=== PATIENT | male | born 1975 | race Native Hawaiian/Other Pacific Islander ===

== ENCOUNTER 2019-06-19 22:50 | Emergency (ER) | payer OTHER ==
[2019-06-19 22:57] VITALS: BP 157/90; PULSE 91; RESP 16; TEMP 98
[2019-06-19] MEDS ORDERED: TOPICAL SKIN ADHESIVE 1 EACH AMP TOPICAL ONE (23:42)
[2019-06-19] MEDS ORDERED: DIPH,PERTUS(ACELL)TETVAC-LF 0.5 ML VIAL IM ONE (23:42)
--- NOTE | 2019-06-19 23:43 | ED ---
Wound/Laceration HPI - General Chief Complaint: Wound/Laceration Stated Complaint: Hand Laceration, [facility] Time Seen by Provider: 06/19/19 23:26 Source: patient Mode of arrival: ambulatory Limitations: no limitations - History of Present Illness Initial Comments: 43-year-old male presenting today for chief complaint of right thumb laceration. Patient states that he was opening a box at work when he cut himself on the thumb. Patient states that the bleeding is now controlled. Patient unsure of last tetanus. Denies any limitations range of motion deficits in sensation or decrease in strength of the affected digit. Patient denies any other complaints or areas of injury. Remaining review of systems negative - Related Data Allergies Allergy/AdvReac Type Severity Reaction Status Date / Time No Known Allergies Allergy Verified 06/19/19 22:54 Review of Systems ROS Statement: Those systems with pertinent positive or pertinent negative responses have been documented in the HPI. ROS Other: All systems not noted in ROS Statement are negative. Past Medical History Past Medical History: No Reported History History of Any Multi-Drug Resistant Organisms: None Reported Past Surgical History: No Surgical Hx Reported Past Psychological History: No Psychological Hx Reported Smoking Status: Current every day smoker Past Alcohol Use History: None Reported Past Drug Use History: None Reported General Exam - General Exam Comments Initial Comments: General: The patient is awake and alert, in no distress, and does not appear acutely ill. Eye: Pupils are equal, round and reactive to light, extra-ocular movements are intact. No nystagmus. There is normal conjunctiva bilaterally. No signs of icterus. Cardiovascular: There is a regular rate and rhythm. No murmur, rub or gallop is appreciated. Respiratory: Lungs are clear to auscultation, respirations are non-labored, breath sounds are equal. No wheezes, stridor, rales, or rhonchi. Musculoskeletal: Upon inspection there is a superficial laceration linear clean with no evidence of foreign body or deeper injury of the dorsal aspect of the right thumb. Full range of motion MCP DIP PIP joints which are isolated and tested strength intact sensation intact proximal and distal to injury site. Capillary refill less than 3 seconds. +2 radial pulses bilaterally. Bleeding controlled Neurological: A&O x 3. CN II-XII intact, There are no obvious motor or sensory deficits. Coordination appears grossly intact. Speech is normal. Skin: Skin is warm and dry and no rashes or lesions are noted. Psychiatric: Cooperative, appropriate mood & affect, normal judgment. Limitations: no limitations Course Vital Signs 06/19/19 22:54 Temperature 98 F Pulse Rate 91 Respiratory 16 Rate Blood Pressure 157/90 O2 Sat by Pulse 99 Oximetry Medical Decision Making - Medical Decision Making 43-year-old male presenting for thumb laceration. Laceration cleansed wound edges approximated using exofin. Care for skin adhesive was discussed. Tetanus updated very superficial lacerationsuspicion for underlying deeper injury. Patient neurovascularly intact of signs of tendon injury patient's father primary care provider otherwise stable for discharge. As discussed with attending prior Dr. Nava was agreeable care clinic Disposition Clinical Impression: Laceration of right thumb Disposition: HOME SELF-CARE Condition: Good Instructions (If sedation given, give patient instructions): Laceration (ED), Skin Adhesive Care (ED) Additional Instructions: Please use medication as discussed. Please follow-up with family doctor in the next 2-3 days.. Please return to emergency room if the symptoms increase or worsen or for any other concerns. Is patient prescribed a controlled substance at d/c from ED?: No Referrals: None,Stated [Primary Care Provider] - 1-2 days [facility] [NON-STAFF] - 1-2 days Time of Disposition: 00:27
--- NOTE | 2019-06-21 05:21 | CDI ---
Dear Elvie Chamberlain PA-C: Please do addendum length of the thumb laceration repaired. Thank you, Eamon Handy, Regional Director Of Finance. If you have any questions, please contact Risk Manager at [phone]. MTDD
== END 2019-06-20 00:55 | disposition home or self-care (01) ==
LOC: EC 22:50
DX: S61.011A Laceration without foreign body of right thumb without damage to nail, initial encounter (principal); F17.200 Nicotine dependence, unspecified, uncomplicated; Z23 Encounter for immunization; W26.8XXA Contact with other sharp object(s), not elsewhere classified, initial encounter; Y93.89 Activity, other specified; Y92.69 Other specified industrial and construction area as the place of occurrence of the external cause; Y99.0 Civilian activity done for income or pay
CPT/HCPCS: 12001; 90471; 90715; 99282

== ENCOUNTER 2023-05-03 13:36 | Inpatient (IN) | payer OTHER ==
--- NOTE | 2023-05-03 14:01 | ED ---
General Adult HPI - General Source: patient, RN notes reviewed Mode of arrival: ambulatory Limitations: no limitations <Da Bernardo - Last Filed: 05/03/23 14:00> <Lc Novak - Last Filed: 05/03/23 17:18> - General Chief complaint: Shortness of Breath Stated complaint: LOWER SWELLING SOB Time Seen by Provider: 05/03/23 14:00 - History of Present Illness Initial comments: 47-year-old male presents emergency Department chief complaint of leg swelling, dyspnea, jaundice. Patient states that he was at [facility] admitted for acute jaundice. They felt this related to alcohol cirrhosis he st ates he is a very heavy drinker prior to this. He denies any chest pain but states that he is having increasing leg swelling (Da Bernardo) Dictation was produced using [employer] dictation software. please excuse any grammatical, word or spelling errors. Chief Complaint: 47-year-old male recently treated liver failure presents to the ER for dyspnea History of Present Illness: 47-year-old male he was recently admitted at [facility] for liver failure and jaundice. Patient started on multiple medications. Shortly after being discharged few days ago patient developed shortness of breath. Denies any cough. States shortness of breath is worse at night. No chest pain. No fever or constitutional symptoms. The ROS documented in this emergency department record has been reviewed and confirmed by me. Those systems with pertinent positive or negative responses have been documented in the HPI. All other systems are other negative and/or noncontributory. (Lc Novak) - Related Data Allergies Allergy/AdvReac Type Severity Reaction Status Date / Time No Known Allergies Allergy Verified 05/03/23 13:57 Review of Systems ROS Other: All systems not noted in ROS Statement are negative. <Da Bernardo - Last Filed: 05/03/23 14:00> ROS Other: All systems not noted in ROS Statement are negative. <Lc Novak - Last Filed: 05/03/23 17:18> ROS Statement: Those systems with pertinent positive or pertinent negative responses have been documented in the HPI. Past Medical History Past Medical History: Liver Disease History of Any Multi-Drug Resistant Organisms: None Reported Past Surgical History: Appendectomy Past Psychological History: No Psychological Hx Reported Smoking Status: Vaper Past Alcohol Use History: Abuse, Daily Past Drug Use History: None Reported, Marijuana <Da Bernardo - Last Filed: 05/03/23 14:00> General Exam Limitations: no limitations <Da Bernardo - Last Filed: 05/03/23 14:00> <Lc Novak - Last Filed: 05/03/23 17:18> - General Exam Comments Initial Comments: Visual Physical Exam Vital signs reviewed General: Well-appearing, nontoxic, no acute distress. Head: Normocephalic, atraumatic Eyes: PERRLA, EOMI ENT: Airway patent Chest: Nonlabored breathing Skin: No visual rash, normal skin tone Neuro: Alert and oriented 3 Musculoskeletal: No gross abnormalities (Da Bernardo) PHYSICAL EXAM: General Impression: Alert and oriented x3, not in acute distress HEENT: Normocephalic atraumatic, extra-ocular movements intact, pupils equal and reactive to light bilaterally, mucous membranes moist. Cardiovascular: Heart regular rate and rhythm Chest: Able to complete full sentences, no retractions, no tachypnea, mild crackles with auscultation to the lung bases posteriorly Abdomen: abdomen soft, non-tender, non-distended, no organomegaly Musculoskeletal: Pulses present and equal in all extremities, 2+ pitting edema bilateral extremity is Motor: no focal deficits noted Neurological: CN II-XII grossly intact, no focal motor or sensory deficits noted Skin: Intact with no visualized rashes Psych: Normal affect and mood (Lc Novak) Course Vital Signs 05/03/23 05/03/23 13:54 16:57 Temperature 98.1 F Pulse Rate 104 H 89 Respiratory 16 18 Rate Blood Pressure 130/87 132/93 O2 Sat by Pulse 97 Oximetry Medical Decision Making <Da Bernardo - Last Filed: 05/03/23 14:00> - Lab Data Result diagrams: 05/03/23 14:11 05/03/23 14:11 <Lc Novak - Last Filed: 05/03/23 17:18> - Medical Decision Making I performed a quick note portion of this chart signed Da Bernardo PA-C (Da Bernardo) Was pt. sent in by a medical professional or institution (TYLER Yung, WIRE WORKER, urgent care, hospital, or fpc...) When possible be specific @ -No Did you speak to anyone other than the patient for history (EMS, parent, family, police, friend...)? What history was obtained from this source @ -No Did you review nursing and triage notes (agree or disagree)? Why? @ -I reviewed and agree with nursing and triage notes Were old charts reviewed (outside hosp., previous admission, EMS record, old EKG, old radiological studies, urgent care reports/EKG's, fpc records)? Report findings @ -No old charts were reviewed Differential Diagnosis (chest pain, altered mental status, abdominal pain women, abdominal pain men, vaginal bleeding, musculoskeletal, weakness, fever, dyspnea, syncope, headache, dizziness, GI bleed, back pain, seizure, CVA, palpatations, mental health)? @ -Differential Dyspnea: Coronary syndrome, arrhythmia, tamponade, asthma, COPD, pulmonary embolism, pneumonia, pneumothorax, pulmonary effusion, anaphylaxis, diabetic ketoacidosis, flailed chest, pulmonary contusion, diaphragmatic rupture, anemia, neuromuscular, this is not meant to be an all-inclusive list. EKG interpreted by me (3pts min.). @ -None done X-rays interpreted by me (1pt min.). @ -Chest x-ray shows cardiomegaly and pulmonary vascular congestion CT interpreted by me (1pt min.). @ -None done U/S interpreted by me (1pt. min.). @ -None done What testing was considered but not performed or refused? (CT, X-rays, U/S, l abs)? Why? @ -None What meds were considered but not given or refused? Why? @ -None Did you discuss the management of the patient with other professionals (professionals i.e. TYLER Yung, WIRE WORKER, lab, RT, psych nurse, oncology social work, eligibility worker, teacher, boating safety officer, showcase maker)? Give summary @ -Discussed with hospitalist for admission Was smoking cessation discussed for >3mins.? @ -No Was critical care preformed (if so, how long)? @ -No Were there social determinants of health that impacted care today? How? (Dana elessness, low income, unemployed, alcoholism, drug addiction, transportation, low edu. Level, literacy, decrease access to med. care, [facility], rehab)? @ -No Was there de-escalation of care discussed even if they declined (Discuss DNR or withdrawal of care, Hospice)? DNR status @ -No What co-morbidities impacted this encounter? (DM, HTN, Smoking, COPD, CAD, Cancer, CVA, ARF, Chemo, Hep., AIDS, mental health diagnosis, sleep apnea, morbid obesity)? @ -None Was patient admitted / discharged? Hospital course, mention meds given and route, prescriptions, significant lab abnormalities, going to OR and other pertinent info. @ -47-year-old male presents with new-onset dyspnea after recent hospitalization for liver failure and jaundice. Vital signs upon arrival are within acceptable limits. Laboratory evaluation obtained. Patient has elevated BNP. Rest of vitals within acceptable limits. Chest x-ray shows heart failure. Patient has any cardiac history or history of heart failure. Patient be admitted for evaluation of new-onset heart failure. Evaluated 517pm stable at bedside. Patient given 1 dose of Lasix Undiagnosed new problem with uncertain prognosis? @ -No Drug Therapy requiring intensive monitoring for toxicity (Heparin, Nitro, Insulin, Cardizem)? @ -No Were any procedures done? @ -No Diagnosis/symptom? Acute, or Chronic, or Acute on Chronic? Uncomplicated (without systemic symptoms) or Complicated (systemic symptoms)? @ -New onset cardiac myopathy Side effects of treatment? @ -No Exacerbation, Progression, or Severe Exacerbation? @ -No Poses a threat to life or bodily function? How? (Chest pain, USA, IA, pneumonia, PE, COPD, DKA, ARF, appy, cholecystitis, CVA, Diverticulitis, Homicidal, Suicidal, threat to staff... and all critical care pts) @ -yes (Lc Novak) - Lab Data Lab Results 05/03/23 05/03/23 05/03/23 Range/Units 14:11 14:11 14:11 WBC 5.0 (3.8-10.6) k/uL RBC 3.16 L (4.30-5.90) m/uL Hgb 11.9 L (13.0-17.5) gm/dL Hct 35.9 L (39.0-53.0) % MCV 113.5 H (80.0-100.0) fL MCH 37.6 H (25.0-35.0) pg MCHC 33.2 (31.0-37.0) g/dL RDW 17.3 H (11.5-15.5) % Plt Count 254 (150-450) k/uL MPV 8.7 Neutrophils % 75 % Lymphocytes % 14 % Monocytes % 7 % Eosinophils % 1 % Basophils % 1 % Neutrophils # 3.7 (1.3-7.7) k/uL Lymphocytes # 0.7 L (1.0-4.8) k/uL Monocytes # 0.3 (0-1.0) k/uL Eosinophils # 0.1 (0-0.7) k/uL Basophils # 0.0 (0-0.2) k/uL Manual Slide Review Performed Hypochromasia Slight Anisocytosis Slight Macrocytosis Marked A Stomatocytes Present PT 10.9 (10.0-12.5) sec INR 1.0 (<1.2) APTT 27.4 (22.0-30.0) sec Sodium 137 (137-145) mmol/L Potassium 3.1 L (3.5-5.1) mmol/L Chloride 102 (98-107) mmol/L Carbon Dioxide 27 (22-30) mmol/L Anion Gap 8 mmol/L BUN 5 L (9-20) mg/dL Creatinine 0.53 L (0.66-1.25) mg/dL Est GFR (CKD-EPI)AfAm >90 (>60 ml/min/1.73 sqM) Est GFR (CKD-EPI)NonAf >90 (>60 ml/min/1.73 sqM) Glucose 121 H (74-99) mg/dL Plasma Lactic Acid Edy (0.7-2.0) mmol/L Calcium 8.0 L (8.4-10.2) mg/dL Magnesium 1.9 (1.6-2.3) mg/dL Total Bilirubin 9.1 H (0.2-1.3) mg/dL AST 131 H (17-59) U/L ALT 47 (4-49) U/L Alkaline Phosphatase 155 H (38-126) U/L NT-Pro-B Natriuret Pep 1420 pg/mL Total Protein 6.4 (6.3-8.2) g/dL Albumin 2.8 L (3.5-5.0) g/dL Amylase 60 (30-110) U/L Lipase 120 (23-300) U/L 05/03/23 Range/Units 14:11 WBC (3.8-10.6) k/uL RBC (4.30-5.90) m/uL Hgb (13.0-17.5) gm/dL Hct (39.0-53.0) % MCV (80.0-100.0) fL MCH (25.0-35.0) pg MCHC (31.0-37.0) g/dL RDW (11.5-15.5) % Plt Count (150-450) k/uL MPV Neutrophils % % Lymphocytes % % Monocytes % % Eosinophils % % Basophils % % Neutrophils # (1.3-7.7) k/uL Lymphocytes # (1.0-4.8) k/uL Monocytes # (0-1.0) k/uL Eosinophils # (0-0.7) k/uL Basophils # (0-0.2) k/uL Manual Slide Review Hypochromasia Anisocytosis Macrocytosis Stomatocytes PT (10.0-12.5) sec INR (<1.2) APTT (22.0-30.0) sec Sodium (137-145) mmol/L Potassium (3.5-5.1) mmol/L Chloride (98-107) mmol/L Carbon Dioxide (22-30) mmol/L Anion Gap mmol/L BUN (9-20) mg/dL Creatinine (0.66-1.25) mg/dL Est GFR (CKD-EPI)AfAm (>60 ml/min/1.73 sqM) Est GFR (CKD-EPI)NonAf (>60 ml/min/1.73 sqM) Glucose (74-99) mg/dL Plasma Lactic Acid Edy 1.7 (0.7-2.0) mmol/L Calcium (8.4-10.2) mg/dL Magnesium (1.6-2.3) mg/dL Total Bilirubin (0.2-1.3) mg/dL AST (17-59) U/L ALT (4-49) U/L Alkaline Phosphatase (38-126) U/L NT-Pro-B Natriuret Pep pg/mL Total Protein (6.3-8.2) g/dL Albumin (3.5-5.0) g/dL Amylase (30-110) U/L Lipase (23-300) U/L Disposition <Da Bernardo - Last Filed: 05/03/23 14:00> Decision Time: 17:18 <Lc Novak - Last Filed: 05/03/23 17:18> Clinical Impression: Heart failure Disposition: ADMITTED IP TO THIS HOSP Condition: Fair Referrals: None,Stated [Primary Care Provider] - 1-2 days
[2023-05-03 14:38] LABS: Anisocytosis Slight; Basophils % (A) 1 %; Eosinophils # (A) 0.1 k/uL (0-0.7); Eosinophils % (A) 1 %; HCT 35.9 % (39.0-53.0); HGB 11.9 gm/dL (13.0-17.5); Hypochromasia Slight; Lymphocytes # (A) 0.7 k/uL (1.0-4.8); Lymphocytes % (A) 14 %; MCH 37.6 pg (25.0-35.0); MCHC 33.2 g/dL (31.0-37.0); MCV 113.5 fL (80.0-100.0); Macrocytosis Marked; Mean Platelet Volume 8.7; Monocytes # (A) 0.3 k/uL (0-1.0); Monocytes % (A) 7 %; Neutrophils # (A) 3.7 k/uL (1.3-7.7); Neutrophils % (A) 75 %; Platelet Count 254 k/uL (150-450); RBC 3.16 m/uL (4.30-5.90); RDW 17.3 % (11.5-15.5)
[2023-05-03 14:42] LABS: ALT 47 U/L (4-49); AST 131 U/L (17-59); African American GFR (CKD) >90 (>60 ml/min/1.73 sqM); Albumin 2.8 g/dL (3.5-5.0); Alkaline Phosphatase 155 U/L (38-126); Amylase 60 U/L (30-110); Anion Gap 8 mmol/L; Blood Urea Nitrogen 5 mg/dL (9-20); Carbon Dioxide 27 mmol/L (22-30); Chloride 102 mmol/L (98-107); Glucose 121 mg/dL (74-99); Lipase 120 U/L (23-300); Magnesium 1.9 mg/dL (1.6-2.3); Non-African American GFR(CKD) >90 (>60 ml/min/1.73 sqM); Partial Thromboplastin Time 27.4 sec (22.0-30.0); Potassium 3.1 mmol/L (3.5-5.1); Prothrombin Time 10.9 sec (10.0-12.5); Sodium 137 mmol/L (137-145); Total Bilirubin 9.1 mg/dL (0.2-1.3); Total Protein 6.4 g/dL (6.3-8.2)
--- NOTE | 2023-05-03 14:44 | XR ---
EXAMINATION TYPE: XR chest 2V DATE OF EXAM: 05/03/2023 2:38 PM COMPARISON: None TECHNIQUE: XR chest 2V Frontal and lateral views of the chest. CLINICAL INDICATION:Male, 47 years old with history of sob; FINDINGS: Lungs/Pleura: Blunting of both costophrenic angles with left greater than right. No pneumothorax or f ocal consolidation. Pulmonary vascularity: Mild pulmonary vascular congestion. Heart/mediastinum: Cardiomediastinal silhouette is enlarged. Musculoskeletal: No acute osseous pathology. IMPRESSION: Cardiomegaly, pulmonary vascular congestion and small bilateral pleural effusions. Correlate with BNP for congestive heart failure.
[2023-05-03 14:50] LABS: NT-Pro-B-Type Natriuretic Pept 1420 pg/mL
[2023-05-03 15:28] LABS: Stomatocytes Present
[2023-05-03] MEDS ORDERED: FUROSEMIDE 10 MG/ML 4 ML VIAL IV STA (17:25)
--- NOTE | 2023-05-04 08:50 | P.HPIM ---
History of Present Illness this is a pleasant 47 years old male with no previous past medical history reviewed except he was recently diagnosed with alcoholic liver disease. he presents to [facility] on 04/19 with 2 weeks of jaundice and right lower back pain.he was diagnosed with alcoholic liver hepatitis with elevated LFTs, anemia and pancytopenia, hypertension, lactic acidosis and sepsis and possible Dr. colitis. And felt well and was discharged home. now he presents because of worsening bilateral leg swelling over the last 4-5 days. Also complaining of from a total shortness of breath and he thinks his abdomen getting little more distended patient reports chest pain on and off for the last 2-4 months, he says is mild that lasts only for a few seconds.felt like sharp per patient. He has dry cough occasional. He is not on home oxygen. He denies any urinary symptoms. He had diarrhea when he was at [facility] but currently his bowel movement is normal. No vomiting. No headache dizziness weakness or numbness. Patient states that he quit drinking when he was diagnosed with liver disease 2 weeks ago. He used to drink 3-4 tall can beers +3-4 extra liquor sometimesarea Used to smoke 1 pack per day and quit about 1.5 years ago. No current illicit drugs. ferritin was quite elevated at [facility] with 2092 , Repeat ferritin today vitals are stable, afebrile, on room air. CBC showed mild anemia of 11.9 potassium slightly low at 3.1.creatinine 0.5, rest of BMP is unremarkable. bilirubin is 9.1 (WAS 16 AND 23 at [facility]). AST is elevated at 13. ALT normal at 49. glucose mildly elevated 121 Troponin is negative. ProBNP 1420. Chest x-ray showed cardiomegaly with pulmonary vascular congestion and small bilateral pleural effusion Review of Systems Review of systems CONSTITUTIONAL: No fever, no malaise, no fatigue. HEENT: No recent visual problems or hearing problems. Denied any sore throat. CARDIOVASCULAR: No orthopnea, PND, no palpitations, no syncope. PULMONARY: No chest wall tenderness, no hemoptysis. GASTROINTESTINAL: No diarrhea, no nausea, no vomiting, no abdominal pain. Normoactive bowel sounds. NEUROLOGICAL: No headaches, no weakness, no numbness. HEMATOLOGICAL: Denies any bleeding or petechiae. GENITOURINARY: Denies any burning micturition, frequency, or urgency. MUSCULOSKELETAL/RHEUMATOLOGICAL: Denies any joint pain, swelling, or any muscle pain. ENDOCRINE: Denies any polyuria or polydipsia. Past Medical History Past Medical History: Liver Disease History of Any Multi-Drug Resistant Organisms: None Reported Past Surgical History: Appendectomy Past Anesthesia/Blood Transfusion Reactions: No Reported Reaction Additional Past Anesthesia/Blood Transfusion Reaction / Comment(s): high anxiety with General anesthesia Past Psychological History: No Psychological Hx Reported Smoking Status: Vaper Past Alcohol Use History: Abuse, Daily Past Drug Use History: None Reported, Marijuana - Past Family History Mother Additional Family Medical History / Comment(s): gallbladder removed Medications and Allergies Home Medications Medication Instructions Recorded Confirmed Type No Known Home Medications 05/03/23 05/03/23 History Allergies Allergy/AdvReac Type Severity Reaction Status Date / Time No Known Allergies Allergy Verified 05/03/23 17:55 Physical Exam Vitals: Vital Signs Temp Pulse Pulse Resp BP BP Pulse Ox 05/04/23 03:00 98.4 F 91 16 131/86 97 05/04/23 02:00 90 18 127/90 98 05/04/23 00:29 92 18 124/89 98 05/03/23 17:35 103 H 18 130/91 99 05/03/23 17:00 86 18 132/92 99 05/03/23 16:57 89 18 132/93 05/03/23 13:54 98.1 F 104 H 16 130/87 97 Intake and Output 05/03/23 05/03/23 05/04/23 14:59 22:59 06:59 Other: Voiding Method Toilet Weight 108.862 kg 111.4 kg GENERAL: The patient is alert and oriented x3, not in any acute distress. Well developed, well nourished. HEENT: Pupils are round and equally reacting to light. EOMI. No scleral icterus. No conjunctival pallor. Normocephalic, atraumatic. No pharyngeal erythema. No thyromegaly. CARDIOVASCULAR: S1 and S2 present. No murmurs, rubs, or gallops. PULMONARY: Chest is clear to auscultation, no wheezing , no crackles. ABDOMEN: Soft, nontender, nondistended, normoactive bowel sounds. No palpable organomegaly. MUSCULOSKELETAL: No joint swelling or deformity. EXTREMITIES: No cyanosis, clubbing, or pedal edema. NEUROLOGICAL: Gross neurological examination did not reveal any focal deficits. SKIN: No rashes. no petechiae. Results CBC & Chem 7: 05/03/23 14:11 05/03/23 14:11 Labs: Abnormal Lab Results - Last 24 Hours (Table) 05/03/23 05/03/23 Range/Units 14:11 14:11 RBC 3.16 L (4.30-5.90) m/uL Hgb 11.9 L (13.0-17.5) gm/dL Hct 35.9 L (39.0-53.0) % MCV 113.5 H (80.0-100.0) fL MCH 37.6 H (25.0-35.0) pg RDW 17.3 H (11.5-15.5) % Lymphocytes # 0.7 L (1.0-4.8) k/uL Macrocytosis Marked A Potassium 3.1 L (3.5-5.1) mmol/L BUN 5 L (9-20) mg/dL Creatinine 0.53 L (0.66-1.25) mg/dL Glucose 121 H (74-99) mg/dL Calcium 8.0 L (8.4-10.2) mg/dL Total Bilirubin 9.1 H (0.2-1.3) mg/dL AST 131 H (17-59) U/L Alkaline Phosphatase 155 H (38-126) U/L Albumin 2.8 L (3.5-5.0) g/dL Thrombosis Risk Factor Assmnt - Choose All That Apply Any of the Below Risk Factors Present?: Yes Each Factor Represents 1 point: Age 41-60 years, Heart failure (<1month), Swollen legs (current) Other Risk Factors: No Other congenital or acquired thrombophilia - If yes, enter type in comment: No Thrombosis Risk Factor Assessment Total Risk Factor Score: 3 Thrombosis Risk Factor Assessment Level: Moderate Risk Assessment and Plan Assessment: fluid overload most likely secondary to Liver disease and cirrhosis. Rule out cardiomyopathy. cardiomegaly Recent diagnosis of alcoholic cirrhosis Jaundice secondary to above recent history of alcohol use disorder, currently elevated ferritin. Rule out hemachromatosis Plan: Start diuretics lasix and Aldactone, with fluid restriction GI team consult to help in the diagnosis and management of hie liver disease Check echocardiogram cardiology consult Labs and medication were reviewed.. Continue same treatment. Continue with symptomatic treatment. Resume home medication. Monitor labs and vitals. DVT and GI prophylaxis. Further recommendations as per clinical course of the patient DVT prophylaxis: Subcutaneous heparin GI Prophylaxis: Pepcid Prognosis is guarded
[2023-05-04] MEDS ORDERED: FUROSEMIDE 10 MG/ML 4 ML VIAL IV SCH (09:00)
[2023-05-04] MEDS: FAMOTIDINE 20 MG/2 ML VIAL IV SCH ×2 (09:24→20:00)
[2023-05-04] MEDS: HEPARIN SODIUM,PORCINE 5,000 UNIT/ML 1 ML VIAL SQ SCH ×2 (09:24→20:00)
--- NOTE | 2023-05-04 11:16 | P.CRDCN ---
History of Present Illness History of present illness: HISTORY OF PRESENT ILLNESS: This is a 47-year-old male with a past medical history significant for daily alcohol use, nicotine dependence, and liver disease. 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 We have been asked to see the patient in consultation for congestive heart failure. Patient examined at the bedside. Patient states he was hospitalized at [facility] secondary to jaundice and liver disease. He states he was hospitalized for 10 days and was discharged home on Wednesday. He states he has not had any alcohol since been admitted to [facility]. He presented to [facility] yesterday with a chief complaint of shortness of breath and increased lower extremity edema.he states he was told he had a weak heart muscle over at [facility]. However the patient did not have an echocardiogram completed during that admission. * EKG reveals sinus mechanism with no signs of acute ischemia * Chest xray: reveals cardiomegaly, pulmonary vascular congestion and small bilateral pleural effusions * Current home cardiac medications include none REVIEW OF SYSTEMS: At the time of my exam: CONSTITUTIONAL: Denies fever or chills. HEENT: Denies blurred vision, vision changes, or eye pain. Denies hemoptysis CARDIOVASCULAR: Denies chest pain. Denies orthopnea. Denies PND. Denies pa lpitations RESPIRATORY: Denies shortness of breath. GASTROINTESTINAL: Denies abdominal pain. Denies nausea or vomiting. HEMATOLOGIC: Denies bleeding disorders. GENITOURINARY: Denies any blood in urine. SKIN: Denies pruitis. Denies rash. PHYSICAL EXAM: VITAL SIGNS: Reviewed. GENERAL: Well-developed in no acute distress. jaundice. HEENT: Head is normocephalic. Pupils are equal, round. Sclerae anicteric. Mucous membranes of the mouth are moist. Neck supple. No JVD or thyromegaly LUNGS: Respirations even and unlabored. Lungs essentially clear to auscultation bilaterally. HEART: Regular rate and rhythm. S1 and S2 heard. ABDOMEN: Soft. Nondistended. Nontender. EXTREMITIES: Normal range of motion. No clubbing or cyanosis. Peripheral pulses intact. 2+ bilateral lower extremity edema NEUROLOGIC: Awake and alert. Oriented x 3. ASSESSMENT: Shortness of breath Lower extremity edema, likely secondary to hypoalbuminemia and liver disease Hypokalemia Elevated bilirubin, 9.1 History of liver cirrhosis History of alcohol abuse Nicotine dependence, patient currently vapes PLAN: Obtain 2-D echo to assess cardiac structure and function Discontinue IV Lasix. Begin oral Lasix Continue Aldactone Abstinence from alcohol recommended Further recommendations pending patient's course Nurse practitioner note has been reviewed by physician. Signing provider agrees with the documented findings, assessment, and plan of care. Past Medical History Past Medical History: Liver Disease History of Any Multi-Drug Resistant Organisms: None Reported Past Surgical History: Appendectomy Past Anesthesia/Blood Transfusion Reactions: No Reported Reaction Additional Past Anesthesia/Blood Transfusion Reaction / Comment(s): high anxiety with General anesthesia Past Psychological History: No Psychological Hx Reported Smoking Status: Vaper Past Alcohol Use History: Abuse, Daily Past Drug Use History: None Reported, Marijuana - Past Family History Mother Additional Family Medical History / Comment(s): gallbladder removed Medications and Allergies Home Medications Medication Instructions Recorded Confirmed Type No Known Home Medications 05/03/23 05/03/23 History Allergies Allergy/AdvReac Type Severity Reaction Status Date / Time No Known Allergies Allergy Verified 05/03/23 17:55 Physical Exam Vitals: Vital Signs Temp Pulse Pulse Resp BP BP Pulse Ox 05/04/23 03:00 98.4 F 91 16 131/86 97 05/04/23 02:00 90 18 127/90 98 05/04/23 00:29 92 18 124/89 98 05/03/23 17:35 103 H 18 130/91 99 05/03/23 17:00 86 18 132/92 99 05/03/23 16:57 89 18 132/93 05/03/23 13:54 98.1 F 104 H 16 130/87 97 Intake and Output 05/03/23 05/04/23 05/04/23 22:59 06:59 14:59 Other: Voiding Method Toilet Weight 111.4 kg Results 05/03/23 14:11 05/03/23 14:11 Cardiac Enzymes 05/03/23 05/03/23 Range/Units 14:11 14:11 AST 131 H (17-59) U/L Troponin I <0.012 (0.000-0.034) ng/mL Coagulation 05/03/23 Range/Units 14:11 PT 10.9 (10.0-12.5) sec APTT 27.4 (22.0-30.0) sec CBC 05/03/23 Range/Units 14:11 WBC 5.0 (3.8-10.6) k/uL RBC 3.16 L (4.30-5.90) m/uL Hgb 11.9 L (13.0-17.5) gm/dL Hct 35.9 L (39.0-53.0) % Plt Count 254 (150-450) k/uL Comprehensive Metabolic Panel 05/03/23 Range/Units 14:11 Sodium 137 (137-145) mmol/L Potassium 3.1 L (3.5-5.1) mmol/L Chloride 102 (98-107) mmol/L Carbon Dioxide 27 (22-30) mmol/L BUN 5 L (9-20) mg/dL Creatinine 0.53 L (0.66-1.25) mg/dL Glucose 121 H (74-99) mg/dL Calcium 8.0 L (8.4-10.2) mg/dL AST 131 H (17-59) U/L ALT 47 (4-49) U/L Alkaline Phosphatase 155 H (38-126) U/L Total Protein 6.4 (6.3-8.2) g/dL Albumin 2.8 L (3.5-5.0) g/dL Intake and Output 05/03/23 05/04/23 05/04/23 22:59 06:59 14:59 Other: Voiding Method Toilet Weight 111.4 kg 05/03/23 14:11 05/03/23 14:11
[2023-05-04] MEDS: SPIRONOLACTONE 25 MG TAB PO SCH (11:48)
--- NOTE | 2023-05-04 13:18 | CA ---
Transthoracic Echo Report Name: Keo Blankenship Age: 47 Gender: M : 1975 Exam Date: 05/04/2023 11:19 Exam Location: [facility] Ht (in): 74 Wt (lb): 245 Ordering Physician: Lee Ann Aldrich Attending/Referring Phys: [id number], Elinor Range Aide Dario Guzman Procedure CPT: Indications: LV function, SOB Cardiac Hx: Technical Quality: Fair Contrast 1: Total Dose (mL): Contrast 2: Total Dose (mL): MEASUREMENTS (Male / Female) Normal Values 2D ECHO LV Diastolic Diameter PLAX 5.5 cm 4.2 - 5.9 / 3.9 - 5.3 cm LV Systolic Diameter PLAX 4.0 cm IVS Diastolic Thickness 1.1 cm 0.6 - 1.0 / 0.6 - 0.9 cm LVPW Diastolic Thickness 0.9 cm 0.6 - 1.0 / 0.6 - 0.9 cm LV Relative Wall Thickness 0.4 RV Internal Dim ED PLAX 2.4 cm LVOT Diameter 2.2 cm Aortic Root Diameter 3.4 cm LA Systolic Diameter LX 2.9 cm 3.0 - 4.0 / 2.7 - 3.8 cm LV Diastolic Volume MOD BP 124.3 cm??? 67 - 155 / 56 - 104 cm??? LV Systolic Volume MOD BP 64.5 cm??? 22 - 58 / 19 - 49 cm??? LV Ejection Fraction MOD BP 48.1 % >= 55 % LV Cardiac Index MOD BP 1961.6 cm???/min???m??? LV Diastolic Volume MOD 4C 156.6 cm??? LV Systolic Volume MOD 4C 73.1 cm??? LV Ejection Fraction MOD 4C 53.3 % LV Cardiac Index MOD 4C 2742.1 cm???/min???m??? LV Diastolic Length 4C 9.3 cm LV Systolic Length 4C 7.8 cm LV Diastolic Volume MOD 2C 98.8 cm??? LV Systolic Volume MOD 2C 53.6 cm??? LV Ejection Fraction MOD 2C 45.7 % LV Cardiac Index MOD 2C 1483.8 cm???/min???m??? LV Diastolic Length 2C 9.1 cm LV Systolic Length 2C 7.5 cm LA Volume 38.3 cm??? 18 - 58 / 22 - 52 cm??? LA Volume Index 15.7 cm???/m??? 16 - 28 cm???/m??? DOPPLER AV Peak Velocity 126.7 cm/s AV Peak Gradient 6.4 mmHg LVOT Peak Velocity 132.2 cm/s LVOT Peak Gradient 7.0 mmHg LVOT Velocity Time Integral 24.4 cm LVOT Stroke Volume 92.3 cm??? LVOT Stroke Volume Index 39.0 ml/m??? LVOT Cardiac Index 3031.8 cm???/min???m??? AV Area Cont Eq pk 3.9 cm??? MV Peak Velocity 89.6 cm/s MV Peak Gradient 3.2 mmHg MV Mean Velocity 52.2 cm/s MV Mean Gradient 1.3 mmHg MV Velocity Time Integral 29.3 cm Mitral E Point Velocity 82.6 cm/s Mitral A Point Velocity 75.2 cm/s Mitral E to A Ratio 1.1 MV Deceleration Time 200.9 ms MV E' Velocity 8.2 cm/s Mitral E to MV E' Ratio 10.1 TR Peak Velocity 137.0 cm/s TR Peak Gradient 7.5 mmHg Right Ventricular Systolic Press 12.5 mmHg PV Peak Velocity 117.3 cm/s PV Peak Gradient 5.5 mmHg FINDINGS Left Ventricle Normal LV size and wall thickness. Left ventricular ejection fraction is estimated at 40-45 %. Global hypokinesis with no segmental wall motion abnormalities Right Ventricle Normal right ventricular size. Right Atrium Normal right atrial size. Left Atrium Normal left atrial size. Mitral Valve Structurally normal mitral valve. No mitral regurgitation. No mitral stenosis. Aortic Valve Trileaflet aortic valve. No aortic valve stenosis or regurgitation. Tricuspid Valve Structurally normal tricuspid valve. Trace TR. Pulmonic Valve Pulmonic valve not well visualized. No pulmonic regurgitation. Pericardium Not well visualized. Aorta Normal size aortic root. CONCLUSIONS Moderate impairment in the left ventricular systolic function with global hypokinesis Previewed by: Dr. Erin Gaston MD (Electronically Signed) Final Date: 04 May 2023 13:17
--- NOTE | 2023-05-04 14:31 | P.CONS ---
History of Present Illness - Reason for Consult Consult date: 05/04/23 Liver cirrhosis, high ferritin Requesting physician: Shahzad Koroma - Chief Complaint Shortness of breath, lower extremity swelling - History of Present Illness This a 47-year-old male who presented to the emergency department yesterday with complaints of shortness of breath and lower extremity swelling. Patient was recently hospitalized for 12-13 days at [facility] and diagnosed with acute alcoholic hepatitis. He admits to drinking heavily for 2 years duration 3-4 tall beers daily along with 3-4 small liquor bottles. He was seen by gastroenterology at [facility], at that time patient did not have any swelling in his lower extremities. He had acute alcoholic hepatitis with significantly elevated bilirubin. Apparently during that stay he also had elevated ferritin. Gastroenterology has been consulted for cirrhosis with elevated ferritin. Patient currently denies any abdominal pain, no nausea, vomiting, hematemesis or blood in his stool. He states that he has noticed over the last couple days increased swelling in his lower extremities and some shortness of breath. Chest x-ray showed cardiomegaly, pulmonary vascular congestion and small bilateral pleural effusions. Correlate with BMP for congestive heart failure. Patient denies any shortness of breath at this time, no chest pain. Cardiology on consult. Admitting labs WBC 5.0 hemoglobin 11.9 hematocrit 35.7 platelet count 254,000 INR 1.0 sodium 137 potassium 3.1 BUN 5 creatinine 0.53 total bilirubin 9.1 AST 131 and 247 alkaline phosphatase 55, amylase 60 lipase 120 Review of Systems REVIEW OF SYSTEMS: CARDIOPULMONARY: No chest pain, patient reported shortness of breath on admission. Lower extremity swelling which is new. Gastrointestinal: No abdominal pain. No nausea or vomiting. No hematemesis, coffee-ground emesis. No rectal bleeding, or melena. GENITOURINARY: No dysuria or hematuria. MUSCULOSKELETAL: Reports normal range of motion. SKIN: No rashes. No jaundice. ENDOCRINE: No chills, fevers. No excessive weight gain or loss. No polydipsia or polyuria. PSYCHIATRIC: Unremarkable. NEUROLOGY: No change in mental status. Denies dizziness, headache. ENT: Vision unremarkable. CONSTITUTIONAL: No recent weight loss. No fever, chills, night sweats. Past Medical History Past Medical History: Liver Disease History of Any Multi-Drug Resistant Organisms: None Reported Past Surgical History: Appendectomy Past Anesthesia/Blood Transfusion Reactions: No Reported Reaction Additional Past Anesthesia/Blood Transfusion Reaction / Comm: high anxiety with General anesthesia Past Psychological History: No Psychological Hx Reported Smoking Status: Vaper Past Alcohol Use History: Abuse, Daily Past Drug Use History: None Reported, Marijuana - Past Family History Mother Additional Family Medical History / Comment(s): gallbladder removed Medications and Allergies Home Medications Medication Instructions Recorded Confirmed Type No Known Home Medications 05/03/23 05/03/23 History Allergies Allergy/AdvReac Type Severity Reaction Status Date / Time No Known Allergies Allergy Verified 05/03/23 17:55 Physical Exam Vitals: Vital Signs Temp Pulse Pulse Resp BP BP Pulse Ox 05/04/23 09:26 98.1 F 74 18 112/64 97 05/04/23 03:00 98.4 F 91 16 131/86 97 05/04/23 02:00 90 18 127/90 98 05/04/23 00:29 92 18 124/89 98 05/03/23 17:35 103 H 18 130/91 99 05/03/23 17:00 86 18 132/92 99 05/03/23 16:57 89 18 132/93 05/03/23 13:54 98.1 F 104 H 16 130/87 97 Intake and Output 05/03/23 05/04/23 05/04/23 22:59 06:59 14:59 Intake Total 118 Balance 118 Intake: Oral 118 Other: Voiding Method Toilet Weight 111.4 kg General appearance: The patient is alert, oriented, appears in no acute distress. HET: Head is normocephalic and atraumatic. Conjunctiva pink. Sclera icteric. Neck: Supple without lymphadenopathy. Trachea midline. Heart: Regular. Lungs: Equal expansion, normal respiratory effort. Abdomen: Soft, nontender, nondistended. No guarding or rigidity. Skin: No rashes. Jaundice. Extremities: Normal skin color and turgor. Bilateral lower extremity pitting edema. Neurological: No focal deficits. Alert and oriented x3. Results CBC & Chem 7: 05/03/23 14:11 05/03/23 14:11 Labs: Abnormal Lab Results - Last 24 Hours (Table) 05/03/23 05/03/23 Range/Units 14:11 14:11 RBC 3.16 L (4.30-5.90) m/uL Hgb 11.9 L (13.0-17.5) gm/dL Hct 35.9 L (39.0-53.0) % MCV 113.5 H (80.0-100.0) fL MCH 37.6 H (25.0-35.0) pg RDW 17.3 H (11.5-15.5) % Lymphocytes # 0.7 L (1.0-4.8) k/uL Macrocytosis Marked A Potassium 3.1 L (3.5-5.1) mmol/L BUN 5 L (9-20) mg/dL Creatinine 0.53 L (0.66-1.25) mg/dL Glucose 121 H (74-99) mg/dL Calcium 8.0 L (8.4-10.2) mg/dL Total Bilirubin 9.1 H (0.2-1.3) mg/dL AST 131 H (17-59) U/L Alkaline Phosphatase 155 H (38-126) U/L Albumin 2.8 L (3.5-5.0) g/dL Chest x-ray: report reviewed (Chest x-ray showed cardiomegaly, pulmonary vascular congestion and small bilateral pleural effusions. Correlate with BMP for congestive heart failure. ) Assessment and Plan (1) Acute alcoholic hepatitis Narrative/Plan: 47-year-old male recently hospitalized for nearly 2 weeks [facility] for newly diagnosed acute alcoholic hepatitis. Patient has history of heavy alcohol use. Last 2 years duration. States he has not had any alcohol since he was diagnosed with liver disease. During that time he was seen by gastroenterology who recommended outpatient follow-up. Patient was only home for a few days and stated he started noticing lower extremity swelling as well as some shortness of breath. At time of discharge he had no lower extremity swelling or ascites. He was not discharged on any diuretics. Patient also apparently had elevated ferritin during his hospitalization which is an acute phase reactant to acute alcoholic hepatitis. There is no further workup indicated as this is commonly seen in acute hepatitis. Agree with Lasix 40 mg daily as well as Aldactone 50 mg daily. Continue alcohol abstinence. Low- sodium diet. Current Visit: Yes Status: Acute Code(s): K70.10 - ALCOHOLIC HEPATITIS WITHOUT ASCITES SNOMED Code(s): 2611307 (2) Lower extremity edema Narrative/Plan: Lower extremity edema more likely related to derangement in the extracellular fluid volume related to underlying liver disease Current Visit: Yes Status: Acute Code(s): R60.0 - LOCALIZED EDEMA SNOMED Code(s): 912119532 Plan: 1. Continue symptomatic and supportive care 2. Low-sodium diet 3. Agree with Lasix 40 mg daily and Aldactone 50 mg daily 4. Continue with alcohol abstinence 5. No further workup indicated for elevated ferritin as this is reactive to acute phase of hepatitis 6. Continue with recommendations and workup from cardiology 7. Replace potassium per protocol 8. Daily CBC, CMP Thank you for this consultation, we will continue to follow. Dr. Mahendra Balderas I agree with the dictator's note, documented as a scribe by Ally Soto.
[2023-05-04 17:22] VITALS: BMI 31.5
[2023-05-05 07:23] LABS: ALT 42 U/L (4-49); AST 117 U/L (17-59); African American GFR (CKD) >90 (>60 ml/min/1.73 sqM); Albumin 2.5 g/dL (3.5-5.0); Alkaline Phosphatase 157 U/L (38-126); Anion Gap 7 mmol/L; Blood Urea Nitrogen 9 mg/dL (9-20); Calcium 7.9 mg/dL (8.4-10.2); Carbon Dioxide 27 mmol/L (22-30); Chloride 106 mmol/L (98-107); Glucose 98 mg/dL (74-99); Non-African American GFR(CKD) >90 (>60 ml/min/1.73 sqM); Potassium 3.2 mmol/L (3.5-5.1); Sodium 140 mmol/L (137-145); Total Bilirubin 6.2 mg/dL (0.2-1.3); Total Protein 5.9 g/dL (6.3-8.2)
[2023-05-05] MEDS ORDERED: FUROSEMIDE 40 MG TAB PO SCH (09:00)
[2023-05-05] MEDS: SPIRONOLACTONE 25 MG TAB PO SCH (09:43)
[2023-05-05] MEDS ORDERED: carvediloL 3.125 MG TAB PO SCH (09:45)
[2023-05-05] MEDS: FAMOTIDINE 20 MG/2 ML VIAL IV SCH (09:47)
[2023-05-05] MEDS: HEPARIN SODIUM,PORCINE 5,000 UNIT/ML 1 ML VIAL SQ SCH (09:47)
[2023-05-05 10:11] VITALS: RESP 16; TEMP 98
--- NOTE | 2023-05-05 11:48 | P.PN ---
Subjective HISTORY OF PRESENT ILLNESS: This is a 47-year-old male with a past medical history significant for daily alcohol use, nicotine dependence, and liver disease. 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 We have been asked to see the patient in consultation for congestive heart failure. Patient examined at the bedside. Patient states he was hospitalized at [facility] [place] secondary to jaundice and liver disease. He states he was hospitalized for 10 days and was discharged home on Wednesday. He states he has not had any alcohol since been admitted to [facility] [place]. He presented to [facility] yesterday with a chief complaint of shortness of breath and increased lower extremity edema.he states he was told he had a weak heart muscle over at [facility] [place]. However the patient did not have an echocardiogram completed during that admission. * EKG reveals sinus mechanism with no signs of acute ischemia * Chest xray: reveals cardiomegaly, pulmonary vascular congestion and small bi lateral pleural effusions * Current home cardiac medications include none 05/05/2023 Patient examined this morning at the bedside. Patient denies chest pain or pressure. He denies shortness of breath. Echocardiogram completed revealing ejection fraction 40-45%. PHYSICAL EXAM: VITAL SIGNS: Reviewed. GENERAL: Well-developed in no acute distress. jaundice. HEENT: Head is normocephalic. Pupils are equal, round. Sclerae anicteric. Mucous membranes of the mouth are moist. Neck supple. No JVD or thyromegaly LUNGS: Respirations even and unlabored. Lungs essentially clear to auscultation bilaterally. HEART: Regular rate and rhythm. S1 and S2 heard. ABDOMEN: Soft. Nondistended. Nontender. EXTREMITIES: Normal range of motion. No clubbing or cyanosis. Peripheral pulses intact. 2+ bilateral lower extremity edema NEUROLOGIC: Awake and alert. Oriented x 3. ASSESSMENT: Shortness of breath Lower extremity edema, likely secondary to hypoalbuminemia and liver disease Hypokalemia Elevated bilirubin, 9.1 History of liver cirrhosis History of alcohol abuse Nicotine dependence, patient currently vapes PLAN: Continue current cardiac medications Add carvedilol and losartan Abstinence from alcohol recommended Patient is stable for discharge home today from a cardiac standpoint We will sign off. Please reconsult if needed. Nurse practitioner note has been reviewed by physician. Signing provider agrees with the documented findings, assessment, and plan of care. Objective - Vital Signs Vital signs: Vital Signs Temp 98.0 F 05/05/23 09:14 Pulse 70 05/05/23 09:14 Resp 16 05/05/23 09:14 BP 123/84 05/05/23 09:14 Pulse Ox 97 05/05/23 09:14 FiO2 Intake & Output 05/04/23 05/05/23 05/05/23 18:59 06:59 18:59 Intake Total 900 560 128 Output Total 1425 300 Balance -525 260 128 Weight 111.4 kg 108.9 kg Intake: IV 20 20 10 Invasive Line 1 20 20 10 Oral 880 540 118 Output: Urine 1425 300 Other: Voiding Method Toilet Toilet Toilet - Labs CBC & Chem 7: 05/03/23 14:11 05/05/23 06:40 Labs: Abnormal Lab Results - Last 24 Hours (Table) 05/04/23 05/05/23 Range/Units 09:29 06:40 Potassium 3.2 L (3.5-5.1) mmol/L Creatinine 0.55 L (0.66-1.25) mg/dL Calcium 7.9 L (8.4-10.2) mg/dL Ferritin 944.0 H (22.0-322.0) ng/mL Total Bilirubin 6.2 H (0.2-1.3) mg/dL AST 117 H (17-59) U/L Alkaline Phosphatase 157 H (38-126) U/L Total Protein 5.9 L (6.3-8.2) g/dL Albumin 2.5 L (3.5-5.0) g/dL
[2023-05-05 12:59] VITALS: BP 115/74; PULSE 79
[2023-05-05] MEDS ORDERED: Potassium Replacement Protocol 1 EACH MISC MISCELLANE PRN (13:00)
[2023-05-05] MEDS: POTASSIUM CHLORIDE ER 20 MEQ TAB.ER PO SCH ×3 (13:18→14:21)
--- NOTE | 2023-05-05 13:48 | P.PN ---
Subjective Progress Note Date: 05/05/23 Principal diagnosis: Cirrhosis of the liver This a 47-year-old male who presented to the emergency department yesterday with complaints of shortness of breath and lower extremity swelling. Patient was recently hospitalized for 12-13 days at [facility] and diagnosed with acute alcoholic hepatitis. He admits to drinking heavily for 2 years duration 3-4 tall beers daily along with 3-4 small liquor bottles. He was seen by gastroenterology at [facility], at that time patient did not have any swelling in his lower extremities. He had acute alcoholic hepatitis with significantly elevated bilirubin. Apparently during that stay he also had elevated ferritin. Gastroenterology has been consulted for cirrhosis with elevated ferritin. Patient currently denies any abdominal pain, no nausea, vomiting, hematemesis or blood in his stool. He states that he has noticed over the last couple days increased swelling in his lower extremities and some shor tness of breath. Chest x-ray showed cardiomegaly, pulmonary vascular congestion and small bilateral pleural effusions. Correlate with BMP for congestive heart failure. Patient denies any shortness of breath at this time, no chest pain. Cardiology on consult. Admitting labs WBC 5.0 hemoglobin 11.9 hematocrit 35.7 platelet count 254,000 INR 1.0 sodium 137 potassium 3.1 BUN 5 creatinine 0.53 total bilirubin 9.1 AST 131 and 247 alkaline phosphatase 55, amylase 60 lipase 120 05/05/2023 Patient seen and examined today without any acute changes. Denies any abdominal pain, nausea or vomiting. States he feels like swelling in lower extremities improved. No shortness of breath or chest pain. Total bilirubin 6.2 AST 117 ALT 42 alkaline phosphatase 67 ferritin was noted at 944 Objective - Vital Signs Vital signs: Vital Signs Temp 98.1 F 05/04/23 23:37 Pulse 79 05/05/23 04:00 Resp 17 05/05/23 04:00 BP 124/73 05/05/23 04:00 Pulse Ox 98 05/05/23 04:00 FiO2 Intake & Output 05/04/23 05/05/23 05/05/23 18:59 06:59 18:59 Intake Total 900 560 118 Output Total 1425 300 Balance -525 260 118 Weight 111.4 kg 108.9 kg Intake: IV 20 20 Invasive Line 1 20 20 Oral 880 540 118 Output: Urine 1425 300 Other: Voiding Method Toilet Toilet - Exam General appearance: The patient is alert, oriented, appears in no acute distress. HET: Head is normocephalic and atraumatic. Conjunctiva pink. Sclera icteric. Neck: Supple without lymphadenopathy. Abdomen: Soft, nontender, nondistended with bowel sounds. No guarding or rigidity. Extremities: Normal skin color and turgor. Bilateral lower extremity edema. Skin: No rashes, jaundice. Neurological: No focal deficits. Alert and oriented. - Labs CBC & Chem 7: 05/03/23 14:11 05/05/23 06:40 Labs: Abnormal Lab Results - Last 24 Hours (Table) 05/04/23 05/05/23 Range/Units 09:29 06:40 Potassium 3.2 L (3.5-5.1) mmol/L Creatinine 0.55 L (0.66-1.25) mg/dL Calcium 7.9 L (8.4-10.2) mg/dL Ferritin 944.0 H (22.0-322.0) ng/mL Total Bilirubin 6.2 H (0.2-1.3) mg/dL AST 117 H (17-59) U/L Alkaline Phosphatase 157 H (38-126) U/L Total Protein 5.9 L (6.3-8.2) g/dL Albumin 2.5 L (3.5-5.0) g/dL Assessment and Plan (1) Acute alcoholic hepatitis Narrative/Plan: 47-year-old male recently hospitalized for nearly 2 weeks [facility] for newly diagnosed acute alcoholic hepatitis. Patient has history of heavy alcohol use. Last 2 years duration. States he has not had any alcohol since he was diagnosed with liver disease. During that time he was seen by gastroenterology who recommended outpatient follow-up. Patient was only home for a few days and stated he started noticing lower extremity swelling as well as some shortness of breath. At time of discharge he had no lower extremity swelling or ascites. He was not discharged on any diuretics. Patient also apparently had elevated ferritin during his hospitalization which is an acute phase reactant to acute alcoholic hepatitis. There is no further workup indicated as this is commonly seen in acute hepatitis. Agree with Lasix 40 mg daily as well as Aldactone 50 mg daily. Continue alcohol abstinence. Low-s odium diet. Current Visit: Yes Status: Acute Code(s): K70.10 - ALCOHOLIC HEPATITIS WITHOUT ASCITES SNOMED Code(s): 8185678 (2) Lower extremity edema Narrative/Plan: Lower extremity edema more likely related to derangement in the extracellular fluid volume related to underlying liver disease Current Visit: Yes Status: Acute Code(s): R60.0 - LOCALIZED EDEMA SNOMED Code(s): 001297638 Plan: 1. Continue symptomatic and supportive care 2. Low-sodium diet 3. Agree with Lasix 40 mg daily and Aldactone 50 mg daily 4. Continue with alcohol abstinence 5. No further workup indicated for elevated ferritin as this is reactive to acute phase of hepatitis 6. Continue with recommendations and workup from cardiology 7. Replace potassium per protocol Thank you for this consultation, patient is cleared from gastroenterology for discharge. Follow-up in [address] Mahendra Balderas I agree with the dictator's note, documented as a scribe by Ally Soto.
[2023-05-05] MEDS ORDERED: LOSARTAN 25 MG TAB PO SCH (21:00)
--- NOTE | 2023-05-06 12:09 | CDI ---
Documentation Clarification Form Date: 05/06/23 From: Elissa Joseph Admit Date: 05/03/2023 05:10:00 PM Patient Name: Keo Blankenship Visit Number: [id number] Discharge Date: 05/05/2023 03:24:00 PM ATTENTION: The Clinical Documentation Specialists (CDI) and [facility] Coding Staff appreciate your assistance in clarifying documentation. Please respond to the clarification below the line at the bottom and electronically sign. The CDI & [facility] Coding staff will review the response and follow-up if needed. Please note: Queries are made part of the Legal Health Record. If you have any questions, please contact the author of this message via ITS. Dr. Pike E Ga, Your patient has the documented diagnosis of unspecified heart failure in the ED Note and progress notes. Additional information regarding the type and acuity of CHF is requested. History/Risk Factors: Alcoholic liver disease Clinical Indicators: He presents because of worsening bilateralleg swellingover the last 4-5 days. Also complaining of from a totalshortness of breathand he thinks his abdomen getting little moredistended patient reportschest painon and off for the last 2-4 months, he says is mild that lasts only for a few seconds.felt like sharp per patient.He has drycough occasional. VS/Pulse OX: T 98.1, P 104, R 16, BP 130/87, o2 SAT 97 BNP: 1420 05/04 Echocardiogram Results: Normal LV size and wall thickness. Left ventricular ejection fraction is estimated at 40-45 %. Global hypokinesiswith nosegmental wall motion abnormalities. 05/03 Chest X Ray: Cardiomegaly, pulmonary vascularcongestionand smallbilateral pleural effusions. Correlate with BNP forcongestive heart failure. Treatment: IV LASIX 40 MG Q 12 HR In your professional opinion, can you please clarify the [acuity and type] of CHF if known? [ ] Acute Systolic Heart Failure (reduced EF) [ ] Chronic Systolic Heart Failure (reduced EF) [ ] Acute on Chronic Systolic Heart Failure (reduced EF) [ ] Acute Diastolic Heart Failure (preserved EF) [ ] Chronic Diastolic Heart Failure (preserved EF) [ ] Acute on Chronic Diastolic Heart Failure (preserved EF) [ ] Acute Systolic & Diastolic Heart Failure [ ] Chronic Systolic & Diastolic Heart Failure [ ] Acute on Chronic Heart Failure Systolic & Diastolic Heart Failure [ ] Other, please specify [ ] Unable to determine Chronic Systolic Heart Failure (reduced EF) MTDD
--- NOTE | 2023-05-09 06:20 | P.DS ---
Providers Date of admission: 05/03/23 17:10 Expected date of discharge: 05/05/23 Attending physician: Adelfo Almonte Consults: 05/03/23 17:09 Consult Physician Routine Consulting Provider: Ronel Joaquin Consult Reason/Comments: chf Do you want consulting provider notified?: Yes 05/04/23 08:48 Consult Physician Routine Consulting Provider: Gilda Balderas Consult Reason/Comments: Liver cirrhosis, high ferritin, alcoholic Do you want consulting provider notified?: Yes Primary care physician: Stated None Hospital Course: Final diagnosis fluid overload most likely secondary to Liver disease and cirrhosis. cardiomyopathy with an EF of 40-45%. Possible acute systolic heart failure with reduced EF Recent diagnosis of alcoholic cirrhosis Jaundice secondary to above recent history of alcohol use disorder, currently Obesity with BMI 30.8 GI prophylaxis DVT prophylaxis Full code Discharge disposition Patient is being discharged in a stable condition with guarded prognosis to home . Patient will follow-up with Dr. Gandara in the outpatient setting upon discharge. Patient is to continue with current medications and close outpatient follow-up with GI as well as cardiology as scheduled. Total time taken is greater than 35 minutes. Hospital course This is a 47-year-old male who was recently admitted with fluid overload and lower extremity swelling and was recently hospitalized at [facility] with cirrhosis. Patient is a drinker and has been instructed to avoid all alcohol use and exposure. Patient is maintained on Lasix and Aldactone showing improv ements in lower extremity swelling and has been seen and evaluated by GI as well as cardiology. Patient reports to feeling improved and would like to go home. Patient has been cleared by consultations. Please refer to consultation notes for further HPI. Currently no reports of chest pain, shortness of breath, or palpitations. Patient is afebrile. No reports of nausea or vomiting and patient is tolerating diet. Patient will be discharged home today. Physical exam: Gen: This is a 47-year-old male who is awake, alert and oriented 3, well- developed, well-nourished, obese HEENT: Head is atraumatic, normocephalic. Pupils equal, round. Sclerae is anicteric. NECK: Supple. No JVD. No lymphadenopathy. No thyromegaly. LUNGS: Clear to auscultation. No wheezes or rhonchi. No intercostal re tractions. HEART: Regular rate and rhythm. No murmur. ABDOMEN: Soft. Bowel sounds are present. No masses. No tenderness. EXTREMITIES: No pedal edema. No calf tenderness. NEUROLOGICAL: Patient is awake, alert and oriented x3. Cranial nerves 2 through 12 are grossly intact. Please refer to medication reconciliation sheet for a list of medications. The impression and plan of care has been dictated by Disha Galarza, Nurse Practitioner as directed. Dr. Kriss MD I have performed a history and examination and MDM of this patient, discussed the same with the dictator, and agree with the dictator's assessment and plan as written ,documented as a scribe. Based on total visit time, I have performed more than 50% of the visit. Patient Condition at Discharge: Fair Plan - Discharge Summary Discharge Rx Participant: Yes New Discharge Prescriptions: New Spironolactone [Aldactone] 50 mg PO DAILY 30 Days #60 tab carvediloL [Coreg] 3.125 mg PO BID-W/MEALS 30 Days #60 tab Furosemide [Lasix] 40 mg PO DAILY #30 tab Losartan [Cozaar] 12.5 mg PO HS 30 Days #15 tab Potassium Chloride [K-Tab ER] 20 meq PO DAILY #30 tab Discharge Medication List Furosemide [Lasix] 40 mg PO DAILY #30 tab 05/05/23 [Rx] Losartan [Cozaar] 12.5 mg PO HS 30 Days #15 tab 05/05/23 [Rx] Potassium Chloride [K-Tab ER] 20 meq PO DAILY #30 tab 05/05/23 [Rx] Spironolactone [Aldactone] 50 mg PO DAILY 30 Days #60 tab 05/05/23 [Rx] carvediloL [Coreg] 3.125 mg PO BID-W/MEALS 30 Days #60 tab 05/05/23 [Rx] Follow up Appointment(s)/Referral(s): Gilda Balderas MD [STAFF PHYSICIAN] - 1 Week (GI physician. Please call to schedule follow up) None,Stated [Primary Care Provider] - 1-2 days Ambulatory/Diagnostic Orders: Basic Metabolic Panel [LAB.AMB] Time Frame: 3 Days, Location: None Selected Patient Instructions/Handouts: Low-Sodium Diet (DC) Discharge/Stand Alone Forms: AA Meetings [place], Outpatient Counseling, In Substance Abuse Facilities, Personal Technology Engineer, Area PCPs Discharge Disposition: HOME SELF-CARE
== END 2023-05-05 15:24 | disposition home or self-care (01) | DRG 432 ==
LOC: EC 13:36 → 3SCARD 17:10
PROVIDERS: ADMIT Hospitalist; ATTEND Hospitalist
DX: K70.10 Alcoholic hepatitis without ascites (principal); I50.23 Acute on chronic systolic (congestive) heart failure; I42.9 Cardiomyopathy, unspecified; E88.09 Other disorders of plasma-protein metabolism, not elsewhere classified; D64.9 Anemia, unspecified; I11.0 Hypertensive heart disease with heart failure; F10.20 Alcohol dependence, uncomplicated; K70.30 Alcoholic cirrhosis of liver without ascites; K70.40 Alcoholic hepatic failure without coma; Z28.310 Unvaccinated for COVID-19; E87.6 Hypokalemia; E66.9 Obesity, unspecified; Z68.30 Body mass index [BMI] 30.0-30.9, adult; F17.290 Nicotine dependence, other tobacco product, uncomplicated; Z71.6 Tobacco abuse counseling; Z59.6 Low income; Z71.3 Dietary counseling and surveillance
CPT/HCPCS: 36415; 71046; 80053; 82150; 82728; 83605; 83690; 83735; 83880; 84484; 85025; 85610; 85730; 93005; 93306; 96374; 99285

== ENCOUNTER 2023-09-28 16:36 | Inpatient (IN) | payer OTHER ==
[2023-09-28] MEDS ORDERED: LORazepam 2 MG/ML INJ IV PRN ×2 (17:02)
[2023-09-28] MEDS ORDERED: LORazepam 1 MG TAB PO PRN (17:02)
--- NOTE | 2023-09-28 17:04 | ED ---
Alcohol HPI - History of Present Illness MD Complaint: alcohol withdrawal -: hour(s) Previous Visits for Alcohol Intoxication?: Yes Recent Trauma: No Associated Symptoms: nausea, vomiting, tremors Treatments Prior to Arrival: none Chronic Alcohol Use: Yes <Kanu Driver - Last Filed: 09/28/23 23:48> - General Source: patient, RN notes reviewed Mode of arrival: ambulatory Limitations: no limitations <Lolly Maldonado - Last Filed: 09/29/23 09:33> - General Chief Complaint: Alcohol Stated Complaint: NV Time Seen by Provider: 09/28/23 16:48 - History of Present Illness Initial Comments: Quick Note-this is a 47-year-old male presents emergency department chief complaint of alcohol withdrawal. Patient dates that his last drink was yesterday morning, states that he has been through alcohol withdrawals and associated DTs in the past. Patient is anxious and has had feelings of nausea and fatigue. (Lolly Maldonado) - Related Data Home Medications Medication Instructions Recorded Confirmed No Known Home Medications 09/29/23 09/29/23 Allergies Allergy/AdvReac Type Severity Reaction Status Date / Time No Known Allergies Allergy Verified 09/29/23 07:52 Review of Systems ROS Other: All systems not noted in ROS Statement are negative. Constitutional: Denies: fever, chills, weakness Eyes: Denies: vision change Respiratory: Denies: cough, dyspnea Cardiovascular: Reports: palpitations. Denies: chest pain, orthopnea, edema, syncope Gastrointestinal: Reports: nausea, vomiting. Denies: abdominal pain, diarrhea, hematemesis, melena, hematochezia Genitourinary: Denies: dysuria, hematuria Musculoskeletal: Denies: back pain Skin: Denies: rash Neurological: Denies: headache, weakness Psychiatric: Reports: anxiety. Denies: auditory hallucinations, visual hallucinations, homicidal thoughts, suicidal thoughts <Kanu Driver - Last Filed: 09/28/23 23:48> ROS Other: All systems not noted in ROS Statement are negative. <Lolly Maldonado - Last Filed: 09/29/23 09:33> ROS Statement: Those systems with pertinent positive or pertinent negative responses have been documented in the HPI. Past Medical History Past Medical History: Liver Disease Additional Past Medical History / Comment(s): cirrhosis History of Any Multi-Drug Resistant Organisms: None Reported Past Surgical History: Appendectomy Past Anesthesia/Blood Transfusion Reactions: No Reported Reaction Additional Past Anesthesia/Blood Transfusion Reaction / Comment(s): high anxiety with General anesthesia Past Psychological History: No Psychological Hx Reported Smoking Status: Vaper Past Alcohol Use History: Abuse, Daily Past Drug Use History: None Reported, Marijuana - Past Family History Mother Additional Family Medical History / Comment(s): gallbladder removed <FernandacandisLolly - Last Filed: 09/29/23 09:33> General Exam Limitations: no limitations General appearance: alert, anxious Head exam: Present: atraumatic, normocephalic Eye exam: Present: normal appearance, scleral icterus, nystagmus. Absent: conjunctival injection ENT exam: Present: normal oropharynx Neck exam: Present: normal inspection Respiratory exam: Present: normal lung sounds bilaterally. Absent: respiratory distress, wheezes, rales, rhonchi, stridor, accessory muscle use Cardiovascular Exam: Present: normal rhythm, tachycardia, normal heart sounds. Absent: systolic murmur, diastolic murmur, rubs, gallop GI/Abdominal exam: Present: soft. Absent: distended, tenderness, guarding, rebound, rigid, mass Extremities exam: Present: normal inspection, normal capillary refill. Absent: pedal edema, calf tenderness Back exam: Present: normal inspection. Absent: CVA tenderness (R), CVA tenderness (L) Neurological exam: Present: alert Skin exam: Present: warm, dry, intact, other (Jaundice). Absent: rash <Kanu Driver - Last Filed: 09/28/23 23:48> Limitations: no limitations <EricaLolly - Last Filed: 09/29/23 09:33> - General Exam Comments Initial Comments: Visual Physical Exam Vital signs reviewed General: ill-appearing, acute distress, jaundice Head: Normocephalic, atraumatic Eyes: PERRLA, EOMI ENT: Airway patent Chest: Nonlabored breathing Skin: No visual rash, normal skin tone Neuro: Alert and oriented 3 Musculoskeletal: No gross abnormalities (Stieler,Lolly) Course Vital Signs 09/28/23 09/28/23 09/28/23 16:42 21:54 23:06 Temperature 98.1 F Pulse Rate 110 H 92 99 Respiratory 20 18 16 Rate Blood Pressure 155/106 144/100 137/103 O2 Sat by Pulse 98 94 L 95 Oximetry 09/29/23 09/29/23 09/29/23 00:10 01:00 02:06 Temperature Pulse Rate 101 H 100 107 H Respiratory 18 16 18 Rate Blood Pressure O2 Sat by Pulse 94 L 95 94 L Oximetry 09/29/23 09/29/23 09/29/23 03:10 04:10 05:40 Temperature Pulse Rate 98 101 H 103 H Respiratory 16 18 18 Rate Blood Pressure 152/106 155/100 O2 Sat by Pulse 96 96 94 L Oximetry 09/29/23 09/29/23 06:59 08:29 Temperature 99.4 F Pulse Rate 105 H 98 Respiratory 18 18 Rate Blood Pressure 143/101 159/106 O2 Sat by Pulse 97 97 Oximetry Medical Decision Making - Lab Data Result diagrams: 09/28/23 16:49 09/28/23 16:49 - EKG Data -: EKG Interpreted by Ct EKG shows normal: sinus rhythm, axis (Normal), intervals (Normal), QRS complexes (Normal), ST-T waves (Normal) Rate: tachycardia (Rate 110 bpm) <Kanu Driver - Last Filed: 09/28/23 23:48> - Lab Data Result diagrams: 09/28/23 16:49 09/28/23 16:49 <Lolly Maldonado - Last Filed: 09/29/23 09:33> - Medical Decision Making I completed the quick note portion of this chart signed Lolly Maldonado PA-C (Lolly Maldonado) - Lab Data Lab Results 09/28/23 09/28/23 09/28/23 Range/Units 16:49 16:49 16:49 WBC 4.3 (3.8-10.6) k/uL RBC 3.71 L (4.30-5.90) m/uL Hgb 13.3 (13.0-17.5) gm/dL Hct 39.4 (39.0-53.0) % MCV 106.2 H (80.0-100.0) fL MCH 35.8 H (25.0-35.0) pg MCHC 33.7 (31.0-37.0) g/dL RDW 17.0 H (11.5-15.5) % Plt Count 45 L (150-450) k/uL MPV 9.2 Neutrophils % 75 % Lymphocytes % 14 % Monocytes % 8 % Eosinophils % 1 % Basophils % 1 % Neutrophils # 3.3 (1.3-7.7) k/uL Lymphocytes # 0.6 L (1.0-4.8) k/uL Monocytes # 0.3 (0-1.0) k/uL Eosinophils # 0.0 (0-0.7) k/uL Basophils # 0.0 (0-0.2) k/uL Manual Slide Review Performed Poikilocytosis (manual Present Anisocytosis Slight Macrocytosis Marked A PT 11.8 (10.0-12.5) sec INR 1.1 (<1.2) Sodium (137-145) mmol/L Potassium (3.5-5.1) mmol/L Chloride (98-107) mmol/L Carbon Dioxide (22-30) mmol/L Anion Gap mmol/L BUN (9-20) mg/dL Creatinine (0.66-1.25) mg/dL Est GFR (CKD-EPI)AfAm (>60 ml/min/1.73 sqM) Est GFR (CKD-EPI)NonAf (>60 ml/min/1.73 sqM) Glucose (74-99) mg/dL Calcium (8.4-10.2) mg/dL Phosphorus (2.5-4.5) mg/dL Magnesium (1.6-2.3) mg/dL Total Bilirubin (0.2-1.3) mg/dL AST (17-59) U/L ALT (4-49) U/L Alkaline Phosphatase (38-126) U/L Ammonia (<30) umol/L Total Protein (6.3-8.2) g/dL Albumin (3.5-5.0) g/dL Amylase (30-110) U/L Lipase (23-300) U/L Urine Color Dark Yellow Urine Appearance Clear (Clear) Urine pH 7.0 (5.0-8.0) Ur Specific [place] 1.008 (1.001-1.035) Urine Protein 1+ H (Negative) Urine Glucose (UA) Negative (Negative) Urine Ketones Negative (Negative) Urine Blood Negative (Negative) Urine Nitrite Negative (Negative) Urine Bilirubin 2+ H (Negative) Urine Urobilinogen 12.0 (<2.0) mg/dL Ur Leukocyte Esterase Negative (Negative) Urine RBC 1 (0-5) /hpf Urine WBC 1 (0-5) /hpf Serum Alcohol mg/dL 09/28/23 09/28/23 Range/Units 16:49 16:49 WBC (3.8-10.6) k/uL RBC (4.30-5.90) m/uL Hgb (13.0-17.5) gm/dL Hct (39.0-53.0) % MCV (80.0-100.0) fL MCH (25.0-35.0) pg MCHC (31.0-37.0) g/dL RDW (11.5-15.5) % Plt Count (150-450) k/uL MPV Neutrophils % % Lymphocytes % % Monocytes % % Eosinophils % % Basophils % % Neutrophils # (1.3-7.7) k/uL Lymphocytes # (1.0-4.8) k/uL Monocytes # (0-1.0) k/uL Eosinophils # (0-0.7) k/uL Basophils # (0-0.2) k/uL Manual Slide Review Poikilocytosis (manual Anisocytosis Macrocytosis PT (10.0-12.5) sec INR (<1.2) Sodium 138 (137-145) mmol/L Potassium 3.4 L (3.5-5.1) mmol/L Chloride 97 L (98-107) mmol/L Carbon Dioxide 24 (22-30) mmol/L Anion Gap 17 mmol/L BUN 6 L (9-20) mg/dL Creatinine 0.57 L (0.66-1.25) mg/dL Est GFR (CKD-EPI)AfAm >90 (>60 ml/min/1.73 sqM) Est GFR (CKD-EPI)NonAf >90 (>60 ml/min/1.73 sqM) Glucose 154 H (74-99) mg/dL Calcium 9.0 (8.4-10.2) mg/dL Phosphorus 2.8 (2.5-4.5) mg/dL Magnesium 1.6 (1.6-2.3) mg/dL Total Bilirubin 9.8 H (0.2-1.3) mg/dL AST 551 H (17-59) U/L ALT 133 H (4-49) U/L Alkaline Phosphatase 347 H (38-126) U/L Ammonia 59 H (<30) umol/L Total Protein 8.4 H (6.3-8.2) g/dL Albumin 4.2 (3.5-5.0) g/dL Amylase 76 (30-110) U/L Lipase 168 (23-300) U/L Urine Color Urine Appearance (Clear) Urine pH (5.0-8.0) Ur Specific [place] (1.001-1.035) Urine Protein (Negative) Urine Glucose (UA) (Negative) Urine Ketones (Negative) Urine Blood (Negative) Urine Nitrite (Negative) Urine Bilirubin (Negative) Urine Urobilinogen (<2.0) mg/dL Ur Leukocyte Esterase (Negative) Urine RBC (0-5) /hpf Urine WBC (0-5) /hpf Serum Alcohol 305 H* mg/dL Disposition Is patient prescribed a controlled substance at d/c from ED?: No <Kanu Driver - Last Filed: 09/28/23 23:48> <Lolly Maldonado - Last Filed: 09/29/23 09:33> Clinical Impression: Acute alcoholic hepatitis, Alcohol withdrawal syndrome Disposition: ADMITTED IP TO THIS HOSP Condition: Fair
[2023-09-28 17:09] LABS: Anisocytosis Slight; Basophils % (A) 1 %; Eosinophils % (A) 1 %; HCT 39.4 % (39.0-53.0); HGB 13.3 gm/dL (13.0-17.5); Lymphocytes # (A) 0.6 k/uL (1.0-4.8); Lymphocytes % (A) 14 %; MCH 35.8 pg (25.0-35.0); MCHC 33.7 g/dL (31.0-37.0); MCV 106.2 fL (80.0-100.0); Macrocytosis Marked; Mean Platelet Volume 9.2; Monocytes # (A) 0.3 k/uL (0-1.0); Monocytes % (A) 8 %; Neutrophils # (A) 3.3 k/uL (1.3-7.7); Neutrophils % (A) 75 %; RBC 3.71 m/uL (4.30-5.90); WBC 4.3 k/uL (3.8-10.6)
[2023-09-28 17:26] LABS: INR 1.1 (<1.2); Prothrombin Time 11.8 sec (10.0-12.5)
[2023-09-28 17:29] LABS: ALT 133 U/L (4-49); AST 551 U/L (17-59); African American GFR (CKD) >90 (>60 ml/min/1.73 sqM); Albumin 4.2 g/dL (3.5-5.0); Alkaline Phosphatase 347 U/L (38-126); Amylase 76 U/L (30-110); Anion Gap 17 mmol/L; Blood Urea Nitrogen 6 mg/dL (9-20); Carbon Dioxide 24 mmol/L (22-30); Chloride 97 mmol/L (98-107); Glucose 154 mg/dL (74-99); Lipase 168 U/L (23-300); Magnesium 1.6 mg/dL (1.6-2.3); Non-African American GFR(CKD) >90 (>60 ml/min/1.73 sqM); Phosphorus 2.8 mg/dL (2.5-4.5); Potassium 3.4 mmol/L (3.5-5.1); Sodium 138 mmol/L (137-145); Total Bilirubin 9.8 mg/dL (0.2-1.3); Total Protein 8.4 g/dL (6.3-8.2)
[2023-09-28 17:36] LABS: Platelet Count 45 k/uL (150-450)
[2023-09-28 17:37] LABS: Poikilocytosis (M) Present
[2023-09-28 17:43] LABS: Alcohol 305 mg/dL
[2023-09-28 18:10] LABS: Appearance,Urine Clear (Clear); Bilirubin,Urine 2+ (Negative); Blood,Urine Negative (Negative); Color,Urine Dark Yellow; Glucose,Urine (UA) Negative (Negative); Ketones,Urine Negative (Negative); Leukocyte Esterase,Urine Negative (Negative); Nitrite,Urine Negative (Negative); Protein,Urine 1+ (Negative); RBC,Urine 1 /hpf (0-5); Specific Gravity,Urine 1.008 (1.001-1.035); WBC,Urine 1 /hpf (0-5)
[2023-09-28] MEDS ORDERED: ONDANSETRON 4 MG/2 ML VIAL IVP PRN (21:08)
[2023-09-28] MEDS ORDERED: NALOXONE 0.4 MG/ML 1 ML VIAL IV PRN (21:08)
[2023-09-28] MEDS ORDERED: MAG HYDROX/AL HYDROX/SIMETH 30 ML CUP PO PRN (21:08)
[2023-09-28] MEDS: SODIUM CHLORIDE 0.9% 1,000 ML IV STA (21:22)
[2023-09-28] MEDS: THIAMINE 100 MG/ML 2 ML VIAL IM STA (21:23)
[2023-09-28] MEDS: LORazepam 2 MG/ML INJ IV STA (21:57)
[2023-09-28] MEDS: SODIUM CHLORIDE 0.9% 1,000 ML IV ONE (21:59)
[2023-09-28] MEDS: PANTOPRAZOLE 40 MG/10 ML VIAL IV SCH (22:01)
[2023-09-28] MEDS: SODIUM CHLORIDE 0.9% 1,000 ML IV SCH (23:08)
[2023-09-29] MEDS: LORazepam 2 MG/ML INJ IV PRN ×2 (02:13→08:39)
[2023-09-29] MEDS: carvediloL 3.125 MG TAB PO SCH (08:33)
[2023-09-29] MEDS: FUROSEMIDE 40 MG TAB PO SCH (08:33)
[2023-09-29] MEDS: SPIRONOLACTONE 25 MG TAB PO SCH (08:33)
[2023-09-29] MEDS: THIAMINE 100 MG TAB PO SCH (08:33)
[2023-09-29] MEDS: POTASSIUM CHLORIDE ER 20 MEQ TAB.ER PO SCH (08:33)
--- NOTE | 2023-09-29 12:05 | P.HPIM ---
History of Present Illness H&P Date: 09/29/23 History of present illness; patient is 47-year-old gentleman with past medical history significant for alcoholic hepatitis, alcohol abuse, liver cirrhosis who presented to the hospital for alcohol detox. Patient has been through multiple alcohol withdrawals in the past. Patient was admitted in the hospital in April 2023 at which time he was diagnosed with alcoholic hepatitis and liver disease, patient was seen by GI at that time who recommended keeping patient on Lasix and Aldactone and encouraged alcohol abstinence which patient did not comply with. Patient last drink was a day before. Patient denies any auditory hallucinations. Denies any homicidal or suicidal thoughts. Patient is c omplaining of extreme anxiety. Patient is complaining of nausea and vomiting. There is no complaint of chest pain or shortness of breath. There is no complaint of swelling of feet. Because of the symptoms, patient came to the ER Initial lab work done in the ER showed WBC 4.3, hemoglobin 13.3, platelet count 45 sodium 138, potassium 3.4, BUN 6, creatinine 0.57 bilirubin 9.8 AST 551, ALT 133 alk phos 347 Serum alcohol 305 EKG done in the ER showed heart rate of 110 , no ST segment elevation or depression seen, no T-wave inversions seen. Patient admitted to internal medicine service REVIEW OF SYSTEMS: CONSTITUTIONAL: No fever, no malaise, no fatigue. HEENT: No recent visual problems or hearing problems. Denied any sore throat. CARDIOVASCULAR: No chest pain, orthopnea, PND, no palpitations, no syncope. PULMONARY: No shortness of breath, no cough, no hemoptysis. GASTROINTESTINAL: As mentioned above NEUROLOGICAL: No headaches, no weakness, no numbness. HEMATOLOGICAL: Denies any bleeding or petechiae. GENITOURINARY: Denies any burning micturition, frequency, or urgency. MUSCULOSKELETAL/RHEUMATOLOGICAL: Denies any joint pain, swelling, or any muscle pain. ENDOCRINE: Denies any polyuria or polydipsia. The rest of the 14-point review of systems is negative. PHYSICAL EXAMINATION: GENERAL: The patient is alert and oriented x3, not in any acute distress. Chronically ill looking, jaundiced HEENT: Pupils are round and equally reacting to light. EOMI. positive for scle ral icterus. No conjunctival pallor. Normocephalic, atraumatic. No pharyngeal erythema. No thyromegaly. CARDIOVASCULAR: S1 and S2 present. No murmurs, rubs, or gallops. PULMONARY: Chest is clear to auscultation, no wheezing or crackles. ABDOMEN: Soft, nontender, nondistended, normoactive bowel sounds. No palpable organomegaly. MUSCULOSKELETAL: No joint swelling or deformity. EXTREMITIES: one Plus pitting edema lower extremities bilaterally NEUROLOGICAL: Gross neurological examination did not reveal any focal deficits. SKIN: No rashes. Assessment and plan Alcohol intoxication Alcoholic hepatitis Hyperammonemia Liver cirrhosis due to alcohol Monitor vital signs Monitor CBC Monitor CMP Continue telemetry monitoring Continue high-dose thiamine and folic acid Continue [facility] protocol Continue Ativan per [facility] protocol Low-sodium diet Continue Lasix 40 mg daily and Aldactone 50 mg daily Continue with alcohol abstinence Resume home meds Labs and medication were reviewed.. Continue same treatment. Continue with symptomatic treatment. Resume home medication. Monitor labs and vitals. DVT and GI prophylaxis. Further recommendations as per clinical course of the patient Dictation was produced using [employer] dictation software. please excuse any grammatical, word or spelling errors. Past Medical History Past Medical History: Liver Disease Additional Past Medical History / Comment(s): cirrhosis History of Any Multi-Drug Resistant Organisms: None Reported Past Surgical History: Appendectomy Past Anesthesia/Blood Transfusion Reactions: No Reported Reaction Additional Past Anesthesia/Blood Transfusion Reaction / Comment(s): high anxiety with General anesthesia Past Psychological History: No Psychological Hx Reported Smoking Status: Vaper Past Alcohol Use History: Abuse, Daily Past Drug Use History: None Reported, Marijuana - Past Family History Mother Additional Family Medical History / Comment(s): gallbladder removed Medications and Allergies Home Medications Medication Instructions Recorded Confirmed Type No Known Home Medications 09/29/23 09/29/23 History Allergies Allergy/AdvReac Type Severity Reaction Status Date / Time No Known Allergies Allergy Verified 09/29/23 07:52 Physical Exam Vitals: Vital Signs Temp Pulse Resp BP Pulse Ox 09/29/23 08:29 99.4 F 98 18 159/106 97 09/29/23 06:59 105 H 18 143/101 97 09/29/23 05:40 103 H 18 155/100 94 L 09/29/23 04:10 101 H 18 96 09/29/23 03:10 98 16 152/106 96 09/29/23 02:06 107 H 18 94 L 09/29/23 01:00 100 16 95 09/29/23 00:10 101 H 18 94 L 09/28/23 23:06 99 16 137/103 95 09/28/23 21:54 92 18 144/100 94 L 09/28/23 16:42 98.1 F 110 H 20 155/106 98 Intake and Output 09/28/23 09/29/23 09/29/23 22:59 06:59 14:59 Other: Weight 90.718 kg Results CBC & Chem 7: 09/28/23 16:49 09/28/23 16:49 Labs: Abnormal Lab Results - Last 24 Hours (Table) 09/28/23 09/28/23 09/28/23 Range/Units 16:49 16:49 16:49 RBC 3.71 L (4.30-5.90) m/uL MCV 106.2 H (80.0-100.0) fL MCH 35.8 H (25.0-35.0) pg RDW 17.0 H (11.5-15.5) % Plt Count 45 L (150-450) k/uL Lymphocytes # 0.6 L (1.0-4.8) k/uL Macrocytosis Marked A Potassium 3.4 L (3.5-5.1) mmol/L Chloride 97 L (98-107) mmol/L BUN 6 L (9-20) mg/dL Creatinine 0.57 L (0.66-1.25) mg/dL Glucose 154 H (74-99) mg/dL Total Bilirubin 9.8 H (0.2-1.3) mg/dL AST 551 H (17-59) U/L ALT 133 H (4-49) U/L Alkaline Phosphatase 347 H (38-126) U/L Ammonia (<30) umol/L Total Protein 8.4 H (6.3-8.2) g/dL Urine Protein 1+ H (Negative) Urine Bilirubin 2+ H (Negative) Serum Alcohol 305 H* mg/dL 09/28/23 Range/Units 16:49 RBC (4.30-5.90) m/uL MCV (80.0-100.0) fL MCH (25.0-35.0) pg RDW (11.5-15.5) % Plt Count (150-450) k/uL Lymphocytes # (1.0-4.8) k/uL Macrocytosis Potassium (3.5-5.1) mmol/L Chloride (98-107) mmol/L BUN (9-20) mg/dL Creatinine (0.66-1.25) mg/dL Glucose (74-99) mg/dL Total Bilirubin (0.2-1.3) mg/dL AST (17-59) U/L ALT (4-49) U/L Alkaline Phosphatase (38-126) U/L Ammonia 59 H (<30) umol/L Total Protein (6.3-8.2) g/dL Urine Protein (Negative) Urine Bilirubin (Negative) Serum Alcohol mg/dL
[2023-09-29] MEDS: LOPERAMIDE 2 MG CAP PO SCH (12:29)
[2023-09-29] MEDS: LOSARTAN 25 MG TAB PO SCH (21:39)
[2023-09-30 07:27] VITALS: BP 152/103; PULSE 95; RESP 17; TEMP 97.9
[2023-09-30 11:35] LABS: ALT 93 U/L (10-49); AST 325 U/L (14-35); Albumin 3.5 g/dL (3.8-4.9); Albumin/Globulin Ratio 1.21 Ratio (1.60-3.17); Alkaline Phosphatase 272 U/L (41-126); BUN/Creat Ratio 15.29 Ratio (12.00-20.00); Blood Urea Nitrogen 10.7 mg/dL (9.0-27.0); Calcium 8.5 mg/dL (8.7-10.3); Carbon Dioxide 23.7 mmol/L (21.6-31.8); Chloride 100 mmol/L (96-109); Globulin 2.9 g/dL (1.6-3.3); Glucose 80 mg/dL (70-110); Potassium 3.5 mmol/L (3.5-5.5); Sodium 138 mmol/L (135-145); Total Bilirubin 12.7 mg/dL (0.3-1.2); Total Protein 6.4 g/dL (6.2-8.2)
--- NOTE | 2023-09-30 12:52 | P.DS ---
Providers Date of admission: 09/28/23 21:10 Expected date of discharge: 09/30/23 Attending physician: Adelfo Almonte Primary care physician: Stated None Hospital Course: Discharge diagnoses; Alcohol intoxication Alcoholic hepatitis Hyperammonemia Liver cirrhosis due to alcohol Hospital course; patient is 47-year-old gentleman with past medical history significant for alcoholic hepatitis, alcohol abuse, liver cirrhosis who presented to the hospital for alcohol detox. Patient has been through multiple alcohol withdrawals in the past. Patient was admitted in the hospital in April 2023 at which time he was diagnosed with alcoholic hepatitis and liver disease, patient was seen by GI at that time who recommended keeping patient on Lasix and Aldactone and encouraged alcohol abstinence which patient did not comply with. Patient last drink was a day before. Patient denies any auditory hallucinations. Denies any homicidal or suicidal thoughts. Patient is complaining of extreme anxiety. Patient is complaining of nausea and vomiting. There is no complaint of chest pain or shortness of breath. There is no complaint of swelling of feet. Because of the symptoms, patient came to the ER Initial lab work done in the ER showed WBC 4.3, hemoglobin 13.3, platelet count 45 sodium 138, potassium 3.4, BUN 6, creatinine 0.57 bilirubin 9.8 AST 551, ALT 133 alk phos 347 Serum alcohol 305 EKG done in the ER showed heart rate of 110 , no ST segment elevation or depression seen, no T-wave inversions seen. Patient admitted to internal medicine service 09/29. Patient seen and examined. Blood work done this morning showedSodium 130, potassium 3.5, total bilirubin was 12.7 (9.8), AST was 325 (551), ALT was 93(133). Patient CIWA scores have been low, patient at this time wants to go home. Discussed with patient detail regarding the need for him to stop drinking, patient at this time states that he will try do not drink but not sure if he goes home and will start drinking again. Discussed with him the need for him to get a PCP and to follow-up on his LFTs. Prognosis guarded on this patient PHYSICAL EXAMINATION: GENERAL: The patient is alert and oriented x3, not in any acute distress. Chronically ill looking, jaundiced HEENT: Pupils are round and equally reacting to light. EOMI. positive for scleral icterus. No conjunctival pallor. Normocephalic, atraumatic. No pharyngeal erythema. No thyromegaly. CARDIOVASCULAR: S1 and S2 present. No murmurs, rubs, or gallops. PULMONARY: Chest is clear to auscultation, no wheezing or crackles. ABDOMEN: Soft, nontender, nondistended, normoactive bowel sounds. No palpable organomegaly. MUSCULOSKELETAL: No joint swelling or deformity. EXTREMITIES: one Plus pitting edema lower extremities bilaterally NEUROLOGICAL: Gross neurological examination did not reveal any focal deficits. SKIN: No rashes. Dictation was produced using [employer] dictation software. please excuse any grammatical, word or spelling errors. Patient Condition at Discharge: Fair Plan - Discharge Summary Discharge Rx Participant: Yes New Discharge Prescriptions: New Spironolactone [Aldactone] 50 mg PO DAILY #30 tab Losartan [Cozaar] 12.5 mg PO HS #30 tab Furosemide [Lasix] 40 mg PO DAILY #30 tab Thiamine [Vitamin B-1] 100 mg PO DAILY #30 tab carvediloL [Coreg] 3.125 mg PO BID-W/MEALS #60 tab Discharge Medication List Furosemide [Lasix] 40 mg PO DAILY #30 tab 09/30/23 [Rx] Losartan [Cozaar] 12.5 mg PO HS #30 tab 09/30/23 [Rx] Spironolactone [Aldactone] 50 mg PO DAILY #30 tab 09/30/23 [Rx] Thiamine [Vitamin B-1] 100 mg PO DAILY #30 tab 09/30/23 [Rx] carvediloL [Coreg] 3.125 mg PO BID-W/MEALS #60 tab 09/30/23 [Rx] Follow up Appointment(s)/Referral(s): None,Stated [Primary Care Provider] - 1-2 days Discharge/Stand Alone Forms: AA Meetings [place], Outpatient Counseling, Inp Substance Abuse Facilities, Area PCPs
[2023-09-30 13:03] LABS: Basophils # (A) 0.02 X 10*3/uL (0.00-0.10); Basophils % (A) 0.9 %; Eosinophils # (A) 0.04 X 10*3/uL (0.04-0.35); Eosinophils % (A) 1.9 %; HCT 31.8 % (39.6-50.0); Immature Platelet Fraction 13.1 % (1.1-6.1); Lymphocytes # (A) 0.38 X 10*3/uL (0.90-5.00); MCH 35.8 pg (27.0-32.0); MCHC 34.6 g/dL (32.0-37.0); MCV 103.6 FL (80.0-97.0); Mean Platelet Volume 11.9 FL (9.5-12.2); Monocytes # (A) 0.24 X 10*3/uL (0.20-1.00); Monocytes % (A) 11.4 %; NRBC Per 100 WBC 0 X 10*3/uL (0.00-0.01); Neutrophils # (A) 1.38 X 10*3/uL (1.80-7.70); Neutrophils % (A) 65.4 %; Platelet Count 43 X 10*3/uL (140-440); RBC 3.07 X 10*6/uL (4.40-5.60); RDW 18.3 % (11.5-14.5); Target Cells 2+; WBC 2.11 X 10*3/uL (4.50-10.00)
== END 2023-09-30 13:47 | disposition home or self-care (01) | DRG 775 ==
LOC: EC 16:36 → 5NMEDONC 21:10 → 4SSUR 09-29 20:14
PROVIDERS: ADMIT Hospitalist; ATTEND Hospitalist
PROC: HZ2ZZZZ Detoxification Services for Substance Abuse Treatment (ICD-10-PCS; principal; 2023-09-28)
DX: F10.129 Alcohol abuse with intoxication, unspecified (principal); K70.30 Alcoholic cirrhosis of liver without ascites; K70.10 Alcoholic hepatitis without ascites; F41.9 Anxiety disorder, unspecified; Z79.899 Other long term (current) drug therapy; Y90.8 Blood alcohol level of 240 mg/100 ml or more
CPT/HCPCS: 36415; 80053; 80320; 81001; 82140; 82150; 83690; 83735; 84100; 85025; 85610; 96361; 96372; 96374; 96375; 96376; 99285

== ENCOUNTER 2024-01-24 23:04 | Emergency (ER) | payer OTHER ==
[2024-01-24 23:10] LABS: Glucose,Whole Blood 77 mg/dL (70-110)
--- NOTE | 2024-01-24 23:12 | ED ---
CPR HPI - General Chief Complaint: Cardiac Arrest/CPR Stated Complaint: Cardiac Arrest Time Seen by Provider: 01/24/24 23:09 Source: EMS, RN notes reviewed, old records reviewed Mode of arrival: EMS Limitations: no limitations - History of Present Illness Initial Comments: This is a 48-year-old male to the ER for evaluation patient presents today for evaluation of unresponsive event patient was initially found down EMS was called they thought patient was intoxicated, patient was answering questions initially on EMS arrival loaded and the car they thought he had altered mental status and then patient became unresponsive and lost pulse stop breathing patient was intubated at this time and ACLS protocol was started Complaint: found unresponsive, stopped breathing, collapsed during activity, unknown, seizure (Of alcohol abuse) -: minute(s) Place: home Bystander CPR Performed: No AED Applied by Bystander/Certified Medical Technician Assistant: Yes Shock Advised: No Initial Findings in the Field: no respirations, agonal, no pulse, palpable pulse, no BP ROSC in the Field: Yes Associated Injuries: No Treatments Prior to Arrival: intubation, other airway device, epinephrine mgs # - Related Data Previous Rx's Medication Instructions Recorded Furosemide [Lasix] 40 mg PO DAILY #30 tab 09/30/23 Losartan [Cozaar] 12.5 mg PO HS #30 tab 09/30/23 Spironolactone [Aldactone] 50 mg PO DAILY #30 tab 09/30/23 Thiamine [Vitamin B-1] 100 mg PO DAILY #30 tab 09/30/23 carvediloL [Coreg] 3.125 mg PO BID-W/MEALS #60 tab 09/30/23 Allergies Allergy/AdvReac Type Severity Reaction Status Date / Time No Known Allergies Allergy Verified 09/29/23 07:52 Review of Systems ROS Statement: Those systems with pertinent positive or pertinent negative responses have been documented in the HPI. ROS Other: All systems not noted in ROS Statement are negative. Past Medical History Past Medical History: Liver Disease Additional Past Medical History / Comment(s): cirrhosis History of Any Multi-Drug Resistant Organisms: None Reported Past Surgical History: Appendectomy Past Anesthesia/Blood Transfusion Reactions: No Reported Reaction Additional Past Anesthesia/Blood Transfusion Reaction / Comment(s): high anxiety with General anesthesia Past Psychological History: No Psychological Hx Reported Smoking Status: Vaper Past Alcohol Use History: Abuse, Daily Past Drug Use History: None Reported, Marijuana - Past Family History Mother Additional Family Medical History / Comment(s): gallbladder removed General Exam Limitations: altered mental status, physical limitation General appearance: obtunded, in distress Head exam: Present: atraumatic, normocephalic, normal inspection Eye exam: Present: normal appearance, PERRL (Pupils are dilated). Absent: scleral icterus, conjunctival injection, periorbital swelling ENT exam: Present: normal exam, mucous membranes moist Neck exam: Present: normal inspection. Absent: tenderness, meningismus, lymphadenopathy Respiratory exam: Present: normal lung sounds bilaterally. Absent: respiratory distress, wheezes, rales, rhonchi, stridor Cardiovascular Exam: Present: regular rate, normal rhythm, normal heart sounds. Absent: systolic murmur, diastolic murmur, rubs, gallop, clicks GI/Abdominal exam: Present: soft, normal bowel sounds. Absent: distended, tenderness, guarding, rebound, rigid Extremities exam: Present: normal inspection, full ROM, normal capillary refill. Absent: tenderness, pedal edema, joint swelling, calf tenderness Back exam: Present: normal inspection Neurological exam: Present: alert, oriented X3, CN II-XII intact Psychiatric exam: Present: normal affect, normal mood Skin exam: Present: warm, dry, intact, normal color. Absent: rash Course Vital Signs 01/24/24 01/24/24 01/24/24 23:05 23:16 23:17 Temperature Pulse Rate 80 Respiratory 16 Rate Blood Pressure 59/39 O2 Sat by Pulse 100 Oximetry Fraction of 100 100 Inspired Oxygen (FIO2) 01/24/24 01/24/24 01/24/24 23:28 23:33 23:40 Temperature 93.7 F L Pulse Rate 86 87 83 Respiratory 26 H 17 26 H Rate Blood Pressure 64/39 78/49 94/49 O2 Sat by Pulse 100 100 100 Oximetry Fraction of Inspired Oxygen (FIO2) 01/24/24 01/25/24 01/25/24 23:48 00:00 00:22 Temperature Pulse Rate 83 81 Respiratory 26 H 24 Rate Blood Pressure 104/55 113/48 O2 Sat by Pulse 100 100 Oximetry Fraction of 50 Inspired Oxygen (FIO2) 01/25/24 01/25/24 01/25/24 00:40 00:50 01:00 Temperature Pulse Rate 85 86 86 Respiratory 26 H 24 24 Rate Blood Pressure 114/41 112/39 112/39 O2 Sat by Pulse 100 100 10 L Oximetry Fraction of Inspired Oxygen (FIO2) - Reevaluation(s) Reevaluation #1: 01/24/24 23:48 Medical records reviewed 01/25/24 00:05 Patient has a strong history of cardiomyopathy Reevaluation #2: 01/24/24 23:48 Patient symptoms are relatively unchanged patient does have purposeful movement Reevaluation #3: 01/25/24 00:04 Patient has no family here Reevaluation #4: Was pt. sent in by a medical professional or institution (, [facility], RN ACUTE DIALYSIS, urgent care, hospital, or longterm...) When possible be specific @ -no Did you speak to anyone other than the patient for history (EMS, parent, family, police, friend...)? What history was obtained from this source @ -no Did you review nursing and triage notes (agree or disagree)? Why? @ -agree Are old charts reviewed (outside hosp., previous admission, EMS record, old EKG, old radiological studies, urgent care reports/EKG's, longterm records)? Report findings @ -yes Differential Diagnosis (chest pain, altered mental status, abdominal pain women, abdominal pain men, vaginal bleeding, weakness, fever, dyspnea, syncope, headache, dizziness, GI bleed, back pain, seizure, CVA, palpatations, mental health, musculoskeletal)? @ -prior EKG interpreted by me (3pts min.). @ -yes X-rays interpreted by me (1pt min.). @ -Yes negative for acute disease CT interpreted by me (1pt min.). @ -Yes negative for acute disease U/S interpreted by me (1pt. min.). @ -no What testing was considered but not performed or refused? (CT, X-rays, U/S, labs)? Why? @ -none What meds were considered but not given or refused? Why? @ -none Did you discuss the management of the patient with other professionals (professionals i.e. [facility]YLER Yung, RN ACUTE DIALYSIS, lab, RT, psych nurse, social sciences chair, radio tester, teacher, sewage reticulation drafting officer, telehealth case manager)? Give summary @ -no Was smoking cessation discussed for >3mins.? @ -no Was critical care preformed (if so, how long)? @ -yes65 Were there social determinants of health that impacted care today? How? (Homelessness, low income, unemployed, alcoholism, drug addiction, transportation, low edu. Level, literacy, decrease access to med. care, custodial, rehab)? @ -none Was there de-escalation of care discussed even if they declined (Discuss DNR or withdrawal of care, Hospice)? DNR status @ -no What co-morbidities impacted this encounter? (DM, HTN, Smoking, COPD, CAD, Cancer, CVA, ARF, Chemo, Hep., AIDS, mental health diagnosis, sleep apnea, morbid obesity)? @ -none Was patient admitted / discharged? Hospital course, mention meds given and route, prescriptions, significant lab abnormalities, going to OR and other pertinent info. @ - 48 male with suspected GI bleed resulting in cardiac arrest lactic acidosis severe multifactorial, liver cirrhosis hypotension and hypoperfusion, patient will be transferred [facility] for continued resuscitative care, patient was given 2 units of O- here in this emergency department Transferred to [facility] inpatientUndiagnosed new problem with uncertain prognosis? @ -no Drug Therapy requiring intensive monitoring for toxicity (Heparin, Nitro, Insulin, Cardizem)? @ -no Were any procedures done? @ -no Diagnosis/symptom? @ -Cardiac arrest Acute, or Chronic, or Acute on Chronic? @ -Acute Uncomplicated (without systemic symptoms) or Complicated (systemic symptoms)? @ -Complicated Side effects of treatment? @ -no Exacerbation, Progression, or Severe Exacerbation? @ -exacerbation Poses a threat to life or bodily function? How? (Chest pain, USA, DC, pneumonia, PE, COPD, DKA, ARF, appy, cholecystitis, CVA, Diverticulitis, Homicidal, Suicidal, threat to staff... and all critical care pts) @ -yes cardiac arrest Reevaluation #5: Differential Altered Mental Status: Hypoglycemia, DKA, hypercapnia, ETOH, overdose, CO poisoning, trauma, myxedema coma, HTN encephalopathy, infection, encephalitis, psychosis, intercranial hemorrhage, hepatic encephalopathy, meningitis, CVA, this is not meant to be an all-inclusive list - Consultations Consultation #1: [facility] accepts patient as a transfer Medical Decision Making - Medical Decision Making 48 male with suspected GI bleed resulting in cardiac arrest lactic acidosis severe multifactorial, liver cirrhosis hypotension and hypoperfusion, patient will be transferred [facility] for continued resuscitative care, patient was given 2 units of O- here in this emergency department - Lab Data Result diagrams: 01/24/24 23:08 01/24/24 23:08 Lab Results 01/24/24 01/24/24 01/24/24 Range/Units 23:03 23:08 23:08 WBC 14.9 H (3.8-10.6) k/uL RBC 2.17 L (4.30-5.90) m/uL Hgb 8.1 L (13.0-17.5) gm/dL Hct 26.1 L (39.0-53.0) % MCV 120.2 H (80.0-100.0) fL MCH 37.3 H (25.0-35.0) pg MCHC 31.1 (31.0-37.0) g/dL RDW 17.9 H (11.5-15.5) % Plt Count 89 L (150-450) k/uL MPV 12.3 Neutrophils % Not Reportable Neutrophils % (Manual) 59 % Band Neuts % (Manual) 5 % Lymphocytes % Not Reportable Lymphocytes % (Manual) 31 % Monocytes % Not Reportable Monocytes % (Manual) 2 % Eosinophils % Not Reportable Eosinophils % (Manual) 2 % Basophils % Not Reportable Metamyelocytes % 2 % Neutrophils # Not Reportable Neutrophils # (Manual) 9.50 H (1.3-7.7) k/uL Lymphocytes # Not Reportable Lymphocytes # (Manual) 4.62 (1.0-4.8) k/uL Monocytes # Not Reportable Monocytes # (Manual) 0.30 (0-1.0) k/uL Eosinophils # Not Reportable Eosinophils # (Manual) 0.30 (0-0.7) k/uL Basophils # Not Reportable Metamyelocytes # (Man) 0.30 H (0) k/uL Nucleated RBCs 4 H (0-0) /100 WBC Manual Slide Review Performed Polychromasia Present Hypochromasia Marked Anisocytosis Slight Macrocytosis Marked A PT (10.0-12.5) sec INR (<1.2) APTT (22.0-30.0) sec D-Dimer (<0.60) mg/L FEU Sample Site ABG pH (7.35-7.45) ABG pCO2 (35-45) mmHg ABG pO2 (83-108) mmHg ABG O2 Saturation (94-97) % Yayo Test FiO2 % Sodium (137-145) mmol/L Potassium (3.5-5.1) mmol/L Chloride (98-107) mmol/L Carbon Dioxide (22-30) mmol/L Anion Gap mmol/L BUN (9-20) mg/dL Creatinine (0.66-1.25) mg/dL Est GFR (CKD-EPI)AfAm (>60 ml/min/1.73 sqM) Est GFR (CKD-EPI)NonAf (>60 ml/min/1.73 sqM) Glucose (74-99) mg/dL POC Glucose (mg/dL) 77 (70-110) mg/dL POC Glu Information [employer] Alexander Lactic Ac Sepsis Rflx Plasma Lactic Acid Edy (0.7-2.0) mmol/L Calcium (8.4-10.2) mg/dL Phosphorus (2.5-4.5) mg/dL Magnesium (1.6-2.3) mg/dL Total Bilirubin (0.2-1.3) mg/dL AST (17-59) U/L ALT (4-49) U/L Alkaline Phosphatase (38-126) U/L Ammonia (<30) umol/L Troponin I (0.000-0.034) ng/mL NT-Pro-B Natriuret Pep pg/mL Total Protein (6.3-8.2) g/dL Albumin (3.5-5.0) g/dL Lipase (23-300) U/L Urine Color Urine Appearance (Clear) Urine pH (5.0-8.0) Ur Specific [place] (1.001-1.035) Urine Protein (Negative) Urine Glucose (UA) (Negative) Urine Ketones (Negative) Urine Blood (Negative) Urine Nitrite (Negative) Urine Bilirubin (Negative) Urine Urobilinogen (<2.0) mg/dL Ur Leukocyte Esterase (Negative) Urine RBC (0-5) /hpf Urine WBC (0-5) /hpf Ur Squamous Epith Cells (0-4) /hpf Amorphous Sediment (None) /hpf Urine Bacteria (None) /hpf Hyaline Casts (0-2) /lpf Granular Casts (0) /lpf Urine Mucus (None) /hpf Serum Alcohol mg/dL Blood Type A Negative Blood Type Confirm Blood Type Recheck No Previous Record Bld Type Recheck Status CABO Indicated Antibody Screen NEGATIVE Crossmatch See Detail Spec Expiration Date 01/27/2024 - 230201/24/24 01/24/24 01/24/24 Range/Units 23:08 23:08 23:08 WBC (3.8-10.6) k/uL RBC (4.30-5.90) m/uL Hgb (13.0-17.5) gm/dL Hct (39.0-53.0) % MCV (80.0-100.0) fL MCH (25.0-35.0) pg MCHC (31.0-37.0) g/dL RDW (11.5-15.5) % Plt Count (150-450) k/uL MPV Neutrophils % Neutrophils % (Manual) % Band Neuts % (Manual) % Lymphocytes % Lymphocytes % (Manual) % Monocytes % Monocytes % (Manual) % Eosinophils % Eosinophils % (Manual) % Basophils % Metamyelocytes % % Neutrophils # Neutrophils # (Manual) (1.3-7.7) k/uL Lymphocytes # Lymphocytes # (Manual) (1.0-4.8) k/uL Monocytes # Monocytes # (Manual) (0-1.0) k/uL Eosinophils # Eosinophils # (Manual) (0-0.7) k/uL Basophils # Metamyelocytes # (Man) (0) k/uL Nucleated RBCs (0-0) /100 WBC Manual Slide Review Polychromasia Hypochromasia Anisocytosis Macrocytosis PT 24.0 H (10.0-12.5) sec INR 2.4 H (<1.2) APTT 86.5 H (22.0-30.0) sec D-Dimer 4.05 H (<0.60) mg/L FEU Sample Site ABG pH (7.35-7.45) ABG pCO2 (35-45) mmHg ABG pO2 (83-108) mmHg ABG O2 Saturation (94-97) % Yayo Test FiO2 % Sodium 132 L (137-145) mmol/L Potassium 4.7 (3.5-5.1) mmol/L Chloride 88 L (98-107) mmol/L Carbon Dioxide <5 L* (22-30) mmol/L Anion Gap mmol/L BUN 26 H (9-20) mg/dL Creatinine 2.37 H (0.66-1.25) mg/dL Est GFR (CKD-EPI)AfAm 36 (>60 ml/min/1.73 sqM) Est GFR (CKD-EPI)NonAf 31 (>60 ml/min/1.73 sqM) Glucose 47 L* (74-99) mg/dL POC Glucose (mg/dL) (70-110) mg/dL POC Glu Information [employer] ID Lactic Ac Sepsis Rflx Plasma Lactic Acid Edy >24.0 H* (0.7-2.0) mmol/L Calcium 8.3 L (8.4-10.2) mg/dL Phosphorus 12.0 H* (2.5-4.5) mg/dL Magnesium 2.4 H (1.6-2.3) mg/dL Total Bilirubin 18.9 H* (0.2-1.3) mg/dL AST 952 H (17-59) U/L ALT 182 H (4-49) U/L Alkaline Phosphatase 142 H (38-126) U/L Ammonia 303 H (<30) umol/L Troponin I (0.000-0.034) ng/mL NT-Pro-B Natriuret Pep 34 pg/mL Total Protein 6.0 L (6.3-8.2) g/dL Albumin 3.1 L (3.5-5.0) g/dL Lipase 555 H (23-300) U/L Urine Color Urine Appearance (Clear) Urine pH (5.0-8.0) Ur Specific [place] (1.001-1.035) Urine Protein (Negative) Urine Glucose (UA) (Negative) Urine Ketones (Negative) Urine Blood (Negative) Urine Nitrite (Negative) Urine Bilirubin (Negative) Urine Urobilinogen (<2.0) mg/dL Ur Leukocyte Esterase (Negative) Urine RBC (0-5) /hpf Urine WBC (0-5) /hpf Ur Squamous Epith Cells (0-4) /hpf Amorphous Sediment (None) /hpf Urine Bacteria (None) /hpf Hyaline Casts (0-2) /lpf Granular Casts (0) /lpf Urine Mucus (None) /hpf Serum Alcohol 249 H* mg/dL Blood Type Blood Type Confirm Blood Type Recheck Bld Type Recheck Status Antibody Screen Crossmatch Spec Expiration Date 01/24/24 01/24/24 01/24/24 Range/Units 23:08 23:08 23:20 WBC (3.8-10.6) k/uL RBC (4.30-5.90) m/uL Hgb (13.0-17.5) gm/dL Hct (39.0-53.0) % MCV (80.0-100.0) fL MCH (25.0-35.0) pg MCHC (31.0-37.0) g/dL RDW (11.5-15.5) % Plt Count (150-450) k/uL MPV Neutrophils % Neutrophils % (Manual) % Band Neuts % (Manual) % Lymphocytes % Lymphocytes % (Manual) % Monocytes % Monocytes % (Manual) % Eosinophils % Eosinophils % (Manual) % Basophils % Metamyelocytes % % Neutrophils # Neutrophils # (Manual) (1.3-7.7) k/uL Lymphocytes # Lymphocytes # (Manual) (1.0-4.8) k/uL Monocytes # Monocytes # (Manual) (0-1.0) k/uL Eosinophils # Eosinophils # (Manual) (0-0.7) k/uL Basophils # Metamyelocytes # (Man) (0) k/uL Nucleated RBCs (0-0) /100 WBC Manual Slide Review Polychromasia Hypochromasia Anisocytosis Macrocytosis PT (10.0-12.5) sec INR (<1.2) APTT (22.0-30.0) sec D-Dimer (<0.60) mg/L FEU Sample Site ABG pH (7.35-7.45) ABG pCO2 (35-45) mmHg ABG pO2 (83-108) mmHg ABG O2 Saturation (94-97) % Yayo Test FiO2 % Sodium (137-145) mmol/L Potassium (3.5-5.1) mmol/L Chloride (98-107) mmol/L Carbon Dioxide (22-30) mmol/L Anion Gap mmol/L BUN (9-20) mg/dL Creatinine (0.66-1.25) mg/dL Est GFR (CKD-EPI)AfAm (>60 ml/min/1.73 sqM) Est GFR (CKD-EPI)NonAf (>60 ml/min/1.73 sqM) Glucose (74-99) mg/dL POC Glucose (mg/dL) (70-110) mg/dL POC Glu Information [employer] ID Lactic Ac Sepsis Rflx Plasma Lactic Acid Edy (0.7-2.0) mmol/L Calcium (8.4-10.2) mg/dL Phosphorus (2.5-4.5) mg/dL Magnesium (1.6-2.3) mg/dL Total Bilirubin (0.2-1.3) mg/dL AST (17-59) U/L ALT (4-49) U/L Alkaline Phosphatase (38-126) U/L Ammonia (<30) umol/L Troponin I 0.017 (0.000-0.034) ng/mL NT-Pro-B Natriuret Pep pg/mL Total Protein (6.3-8.2) g/dL Albumin (3.5-5.0) g/dL Lipase (23-300) U/L Urine Color Dark Brown Urine Appearance Turbid (Clear) Urine pH 5.5 (5.0-8.0) Ur Specific [place] 1.017 (1.001-1.035) Urine Protein 1+ H (Negative) Urine Glucose (UA) Trace H (Negative) Urine Ketones 1+ H (Negative) Urine Blood Moderate H (Negative) Urine Nitrite Negative (Negative) Urine Bilirubin 3+ H (Negative) Urine Urobilinogen <2.0 (<2.0) mg/dL Ur Leukocyte Esterase Negative (Negative) Urine RBC 5 (0-5) /hpf Urine WBC 2 (0-5) /hpf Ur Squamous Epith Cells 3 (0-4) /hpf Amorphous Sediment Rare H (None) /hpf Urine Bacteria Rare H (None) /hpf Hyaline Casts 79 H (0-2) /lpf Granular Casts 3 (0) /lpf Urine Mucus Rare H (None) /hpf Serum Alcohol mg/dL Blood Type Blood Type Confirm A Negative Blood Type Recheck Bld Type Recheck Status Antibody Screen Crossmatch Spec Expiration Date 01/24/24 01/24/24 Range/Units 23:43 23:57 WBC (3.8-10.6) k/uL RBC (4.30-5.90) m/uL Hgb (13.0-17.5) gm/dL Hct (39.0-53.0) % MCV (80.0-100.0) fL MCH (25.0-35.0) pg MCHC (31.0-37.0) g/dL RDW (11.5-15.5) % Plt Count (150-450) k/uL MPV Neutrophils % Neutrophils % (Manual) % Band Neuts % (Manual) % Lymphocytes % Lymphocytes % (Manual) % Monocytes % Monocytes % (Manual) % Eosinophils % Eosinophils % (Manual) % Basophils % Metamyelocytes % % Neutrophils # Neutrophils # (Manual) (1.3-7.7) k/uL Lymphocytes # Lymphocytes # (Manual) (1.0-4.8) k/uL Monocytes # Monocytes # (Manual) (0-1.0) k/uL Eosinophils # Eosinophils # (Manual) (0-0.7) k/uL Basophils # Metamyelocytes # (Man) (0) k/uL Nucleated RBCs (0-0) /100 WBC Manual Slide Review Polychromasia Hypochromasia Anisocytosis Macrocytosis PT (10.0-12.5) sec INR (<1.2) APTT (22.0-30.0) sec D-Dimer (<0.60) mg/L FEU Sample Site Left Radial ABG pH <6.82 L* (7.35-7.45) ABG pCO2 32 L (35-45) mmHg ABG pO2 >420 H (83-108) mmHg ABG O2 Saturation 99.4 H (94-97) % Yayo Test Yes FiO2 100 % Sodium (137-145) mmol/L Potassium (3.5-5.1) mmol/L Chloride (98-107) mmol/L Carbon Dioxide (22-30) mmol/L Anion Gap mmol/L BUN (9-20) mg/dL Creatinine (0.66-1.25) mg/dL Est GFR (CKD-EPI)AfAm (>60 ml/min/1.73 sqM) Est GFR (CKD-EPI)NonAf (>60 ml/min/1.73 sqM) Glucose (74-99) mg/dL POC Glucose (mg/dL) (70-110) mg/dL POC Glu Information [employer] ID Lactic Ac Sepsis Rflx Y Plasma Lactic Acid Edy (0.7-2.0) mmol/L Calcium (8.4-10.2) mg/dL Phosphorus (2.5-4.5) mg/dL Magnesium (1.6-2.3) mg/dL Total Bilirubin (0.2-1.3) mg/dL AST (17-59) U/L ALT (4-49) U/L Alkaline Phosphatase (38-126) U/L Ammonia (<30) umol/L Troponin I (0.000-0.034) ng/mL NT-Pro-B Natriuret Pep pg/mL Total Protein (6.3-8.2) g/dL Albumin (3.5-5.0) g/dL Lipase (23-300) U/L Urine Color Urine Appearance (Clear) Urine pH (5.0-8.0) Ur Specific [place] (1.001-1.035) Urine Protein (Negative) Urine Glucose (UA) (Negative) Urine Ketones (Negative) Urine Blood (Negative) Urine Nitrite (Negative) Urine Bilirubin (Negative) Urine Urobilinogen (<2.0) mg/dL Ur Leukocyte Esterase (Negative) Urine RBC (0-5) /hpf Urine WBC (0-5) /hpf Ur Squamous Epith Cells (0-4) /hpf Amorphous Sediment (None) /hpf Urine Bacteria (None) /hpf Hyaline Casts (0-2) /lpf Granular Casts (0) /lpf Urine Mucus (None) /hpf Serum Alcohol mg/dL Blood Type Blood Type Confirm Blood Type Recheck Bld Type Recheck Status Antibody Screen Crossmatch Spec Expiration Date - EKG Data -: EKG Interpreted by Me (EKG is sinus 81 UT 163 QRS 105 QTc 386) - Radiology Data Radiology results: report reviewed (CT Brain is negative for acute disease checks x-ray positive ET tube), image reviewed Critical Care Time Critical Care Time: Yes Total Critical Care Time: 65 Disposition Clinical Impression: Lactic acidosis, Acute respiratory failure, Cardiac arrest, Cirrhosis of liver, Acute alcoholic hepatitis, Cardiomyopathy, Hyperbilirubinemia, ARF (acute renal failure), Hypoglycemia, Hypothermia, Shock, Hypotension, Alcohol intoxication Disposition: OTHER INSTITUTION NOT DEFINED Condition: Critical Is patient prescribed a controlled substance at d/c from ED?: No Referrals: None,Stated [Primary Care Provider] - 1-2 days - Out of Hospital Transfer - Req. Specs Out of Hospital Transfer - Requested Specifics: Other Emergency Center ([facility])
[2024-01-24] MEDS: SODIUM CHLORIDE 0.9% 1,000 ML IV STA (23:16)
[2024-01-24] MEDS: NOREPINEPHRINE 4 MG in SODIUM CHLORIDE 0.9% 250 ML IV SCH (23:17)
[2024-01-24] MEDS: MIDAZOLAM 1 MG/ML 5 ML VIAL IV STA (23:17)
[2024-01-24] MEDS: OCTREOTIDE 100 MCG/ML INJ IVP STA (23:22)
[2024-01-24 23:29] LABS: Anisocytosis Slight; HCT 26.1 % (39.0-53.0); HGB 8.1 gm/dL (13.0-17.5); Hypochromasia Marked; MCH 37.3 pg (25.0-35.0); MCHC 31.1 g/dL (31.0-37.0); MCV 120.2 fL (80.0-100.0); Macrocytosis Marked; Mean Platelet Volume 12.3; Platelet Count 89 k/uL (150-450); RBC 2.17 m/uL (4.30-5.90); RDW 17.9 % (11.5-15.5)
[2024-01-24 23:35] VITALS: TEMP 93.7
[2024-01-24 23:40] LABS: African American GFR (CKD) 36 (>60 ml/min/1.73 sqM); Albumin 3.1 g/dL (3.5-5.0); Alkaline Phosphatase 142 U/L (38-126); Blood Urea Nitrogen 26 mg/dL (9-20); Calcium 8.3 mg/dL (8.4-10.2); Chloride 88 mmol/L (98-107); Lipase 555 U/L (23-300); Magnesium 2.4 mg/dL (1.6-2.3); Non-African American GFR(CKD) 31 (>60 ml/min/1.73 sqM); Potassium 4.7 mmol/L (3.5-5.1); Sodium 132 mmol/L (137-145)
[2024-01-24 23:46] LABS: ABG Oxygen Saturation 99.4 % (94-97); ABG PCO2 32 mmHg (35-45); Allen Test Performed? Yes
[2024-01-24 23:46] LABS: ALT 182 U/L (4-49)
[2024-01-24 23:47] LABS: NT-Pro-B-Type Natriuretic Pept 34 pg/mL
[2024-01-24 23:54] LABS: Glucose 47 mg/dL (74-99)
[2024-01-24 23:55] LABS: Alcohol 249 mg/dL; Carbon Dioxide <5 mmol/L (22-30); Total Bilirubin 18.9 mg/dL (0.2-1.3)
[2024-01-24 23:56] LABS: AST 952 U/L (17-59)
[2024-01-24 23:57] LABS: Lactic Acid, Venous >24.0 mmol/L (0.7-2.0)
[2024-01-25 00:02] LABS: Amorphous Sediment,Urine Rare /hpf; Appearance,Urine Turbid (Clear); Bacteria,Urine Rare /hpf; Bilirubin,Urine 3+ (Negative); Blood,Urine Moderate (Negative); Color,Urine Dark Brown; Glucose,Urine (UA) Trace (Negative); Granular Casts,Urine 3 /lpf (0); Hyaline Casts,Urine 79 /lpf (0-2); Ketones,Urine 1+ (Negative); Leukocyte Esterase,Urine Negative (Negative); Mucus,Urine Rare /hpf; Nitrite,Urine Negative (Negative); PH, Urine 5.5 (5.0-8.0); Protein,Urine 1+ (Negative); RBC,Urine 5 /hpf (0-5); Specific Gravity,Urine 1.017 (1.001-1.035); Squamous Epithelial Cell,Urine 3 /hpf (0-4); Urobilinogen,Urine <2.0 mg/dL (<2.0); WBC,Urine 2 /hpf (0-5)
[2024-01-25] MEDS: DEXTROSE 5%-0.45% NACL 1,000 ML IV ONE (00:09)
[2024-01-25 00:10] LABS: ABG PH <6.82 (7.35-7.45); ABG PO2 >420 mmHg (83-108)
[2024-01-25 00:10] LABS: INR 2.4 (<1.2)
[2024-01-25] MEDS: DEXTROSE 50% SYRINGE 50 ML IVP STA (00:12)
[2024-01-25 00:15] LABS: Partial Thromboplastin Time 86.5 sec (22.0-30.0)
--- NOTE | 2024-01-25 00:28 | XR ---
EXAMINATION TYPE: XR chest 1V portable DATE OF EXAM: 01/25/2024 COMPARISON: Chest x-ray May 03, 2023 HISTORY: ET tube TECHNIQUE: Single frontal view of the chest is obtained. FINDINGS: There is endotracheal tube terminating at the aortic knob level approximately 2 cm above t he kenny. There is orogastric tube projecting below diaphragm. There is mild lateral left basilar li near scarring and/or atelectasis. Right lung is clear. The cardiac silhouette size remains within no rmal limits. The osseous structures are intact. IMPRESSION: 1. New endotracheal and orogastric tubes are satisfactory in position. 2. Mild lateral left basilar linear scarring and/or atelectasis. No suspicious acute pulmonary proces s.
--- NOTE | 2024-01-25 00:31 | CT ---
EXAMINATION TYPE: CT brain wo con DATE OF EXAM: 01/25/2024 COMPARISON: None. HISTORY: cardiac arrest/ CPR. Weakness. CT DLP: 1168.9 mGycm. Automated Exposure Control for Dose Reduction was Utilized. TECHNIQUE: CT scan of the head is performed without contrast. FINDINGS: There is no acute intracranial hemorrhage, mass effect, or midline shift identified. The ventricles and sulci are within normal limits in size for patient's age. Black-white matter differen tiation fairly well maintained. The globes are intact and the visualized sinuses are clear. Moderate to severe focal soft tissue hematoma over the right maxillary sinus and zygoma IMPRESSION: No acute intracranial hemorrhage or midline shift is seen. Moderate to large size acute right facial soft tissue hematoma noted.
[2024-01-25] MEDS: PHYTONADIONE 5 MG in SODIUM CHLORIDE 0.9% 50 ML IVPB STA (00:37)
[2024-01-25 01:06] VITALS: BP 112/39; PULSE 86; RESP 24
[2024-01-25 03:03] LABS: Band Neutrophils % 5 %; Metamyelocytes % 2 %; Neutrophils % (M) 59 %; Nucleated Red Blood Cells 4 /100 WBC (0-0); Total Cells Counted 200
[2024-01-25 03:04] LABS: Lymphocytes # (M) 4.62 k/uL (1.0-4.8); WBC 14.9 k/uL (3.8-10.6)
[2024-01-25 03:05] LABS: Polychromasia Present
== END 2024-01-25 01:11 | disposition other institution (70) ==
LOC: EC 23:04
DX: T68.XXXA Hypothermia, initial encounter (principal); K70.10 Alcoholic hepatitis without ascites; J96.00 Acute respiratory failure, unspecified whether with hypoxia or hypercapnia; K74.60 Unspecified cirrhosis of liver; I46.9 Cardiac arrest, cause unspecified; I42.9 Cardiomyopathy, unspecified; E16.2 Hypoglycemia, unspecified; E87.20 Acidosis, unspecified; I95.89 Other hypotension; F10.129 Alcohol abuse with intoxication, unspecified; N17.9 Acute kidney failure, unspecified; F17.290 Nicotine dependence, other tobacco product, uncomplicated
CPT/HCPCS: 36415; 36600; 94002; 93005; 86900; 86901; 85379; 83880; 80053; 82140; 82805; 83605; 83690; 83735; 84100; 84484; 85025; 85610; 85730; 86850; 86920; 81001; 87070; 87205; 71045; 70450; 99291; 96365; 96375 ×3; 96368; 36430; P9016; G0480; J3430; J2354; J2250; 80320